=== PATIENT | female | born 1960 | race Caucasian/White ===

== ENCOUNTER 2019-06-27 10:17 | Emergency (ER) | payer SELFPAY, OTHER | END 2019-06-27 15:37 | disposition home or self-care (01) | LOC: JER 10:17 ==

== ENCOUNTER 2019-06-29 14:08 | Emergency (ER) | payer SELFPAY ==
[2019-06-29 14:19] VITALS: BP 129/92; PULSE 97; TEMP 97.7; BMI 23.6
--- NOTE | 2019-06-29 14:41 | PDOC ---
Suture Removal/Wound Check HPI - History of Present Illness Chief Complaint: Revisit,Wound Recheck Stated Complaint: WOUND F/U Time Seen by Provider: 06/29/19 14:31 Date of Last ED visit: 06/27/19 - Previous ED Treatment Type of procedure performed on last visit: Yes: I&D of Abscess Antibiotics Prescribed: Yes - Onset of Previous Treatment Comment:: 06/29/19 14:37 Patient returns to ED for recheck of I&D. Abscess healing well, packing still in place. Reports that she has been taking abx as prescribed and abscess has decreased in size and pain. Erythema to wound site but no significant TTP. Packing removed, wound dressed with dry gauze. Return precautions given. Past History - Past Medical History Allergies/Adverse Reactions: Allergies Allergy/AdvReac Type Severity Reaction Status Date / Time No Known Allergies Allergy Verified 06/29/19 14:09 Home Medications: Ambulatory Orders Clindamycin [Cleocin -] 300 mg PO Q6HPO #28 capsule 06/27/19 L. Rhamnosus GG/Inulin [Culturelle Capsule] 1 each PO DAILY #10 cap.sprink 06/27 Metformin HCl [Glucophage] 500 mg PO BID #120 tablet 06/27/19 COPD: No Diabetes: Yes (NIDM NEUROPATHY) - Immunization History Immunization Up to Date: Yes - Suicide/Smoking/Psychosocial Hx Smoking History: Never smoked Hx Alcohol Use: No Drug/Substance Use Hx: No *Physical Exam - Vital Signs Last Vital Signs Temp Pulse Resp BP Pulse Ox 97.7 F 97 H 18 129/92 96 06/29/19 14:10 06/29/19 14:10 06/29/19 14:10 06/29/19 14:10 06/29/19 14:10 *DC/Admit/Observation/Transfer Diagnosis at time of Disposition: Encounter for wound re-check - Discharge Dispostion Disposition: HOME Condition at time of disposition: Stable Decision to Admit order: No - Referrals - Patient Instructions Printed Discharge Instructions: DI for Incision and Drainage of a Skin Abscess Additional Instructions: Please change your wound dressing after each time you shower. Complete the course of antibiotics as prescribed. If your wound develops redness, streaking , swelling, or pain; or you develop any fever, chills, vomiting, or diarrhea, please return to the ER. - Post Discharge Activity
== END 2019-06-29 14:45 | disposition home or self-care (01) ==
LOC: JERFT 14:08
DX: Z48.00 Encounter for change or removal of nonsurgical wound dressing (principal)
CPT/HCPCS: 99281-25

== ENCOUNTER 2020-05-04 21:36 | Inpatient (IN) | payer OTHER ==
[2020-05-04] MEDS ORDERED: SODIUM CHLORIDE 1,000 ML IV STA (21:42)
--- NOTE | 2020-05-04 21:44 | PDOC ---
Rapid Medical Evaluation Chief Complaint: Nausea/Vomiting Time Seen by Provider: 05/04/20 21:39 Medical Evaluation: Allergies Allergy/AdvReac Type Severity Reaction Status Date / Time No Known Allergies Allergy Verified 06/29/19 14:09 05/04/20 21:39 60 year old female bib daughter c/o NV x 4 days. denies fever / chills. as per daughter patient was altered mental status at home. patient now alert ox3. patient is a noncompliant diabetic. Pe: patient alert ox3. A: nausea, vomiting P: labs IVF Discharge Disposition - Diagnosis Confusion Nausea & vomiting Qualifiers: Vomiting type: unspecified Vomiting Intractability: unspecified Qualified Code(s): R11.2 - Nausea with vomiting, unspecified - Referrals - Patient Instructions - Post Discharge Activity
--- NOTE | 2020-05-04 22:15 | PDOC ---
History of Present Illness - General Chief Complaint: Nausea/Vomiting Stated Complaint: VOMITING Time Seen by Provider: 05/04/20 21:39 - History of Present Illness Initial Comments: The pt is a 60F w/ a history of NIDDM w/o meds for several months who presents for evaluation of nausea and NBNB for 3 days. The pt reports generalized weakness and vomiting. She states she has not taken her metformin in months because she ran out of her meds and does not have insurance. She endorses polyuria/polydipsia She denies fevers/chills, vision changes, SOB, diarrhea, dysuria, hemauria, or changes in sensation 05/04/20 22:12 Past History - Medical History Allergies/Adverse Reactions: Allergies Allergy/AdvReac Type Severity Reaction Status Date / Time No Known Allergies Allergy Verified 05/04/20 21:41 Home Medications: Ambulatory Orders Clindamycin [Cleocin -] 300 mg PO Q6HPO #28 capsule 06/27/19 L. Rhamnosus GG/Inulin [Culturelle Capsule] 1 each PO DAILY #10 cap.sprink 06/27/19 Metformin HCl [Glucophage] 500 mg PO BID #120 tablet 06/27/19 COPD: No Diabetes: Yes (NIDM NEUROPATHY) - Immunization History Immunization Up to Date: Yes - Psycho-Social/Smoking History Smoking History: Never smoked Review of Systems - Review of Systems Able to Perform ROS?: Yes Comments:: GENERAL/CONSTITUTIONAL: +Generalized weakness; No fever or chills HEAD, EYES, EARS, NOSE AND THROAT: No change in vision. No change in hearing. No sore throat CARDIOVASCULAR: No chest pain or shortness of breath RESPIRATORY: Denies cough, hemoptysis GASTROINTESTINAL: +N/V; denies diarrhea GENITOURINARY: No dysuria, frequency, or change in urination MUSCULOSKELETAL: No joint or muscle swelling or pain. No neck or back pain SKIN: No rash NEUROLOGIC: No headache, vertigo, loss of consciousness, or change in strength/sensation ENDOCRINE: +polyuria/polydipsia HEMATOLOGIC/LYMPHATIC: No anemia, easy bleeding, or history of blood clots ALLERGIC/IMMUNOLOGIC: No hives or skin allergy 05/04/20 22:12 Is the patient limited Citizen Of The [place] proficient: No *Physical Exam - Vital Signs Last Vital Signs Temp Pulse Resp BP Pulse Ox 98.1 F 60 18 110/54 L 98 05/04/20 21:39 05/04/20 21:39 05/04/20 21:39 05/04/20 21:39 05/04/20 21:39 - Physical Exam GENERAL: Awake, alert, and oriented to person/place/time, in no acute distress HEAD: No signs of trauma, normocephalic, atraumatic EYES: PERRLA, EOMI, sclera anicteric, conjunctiva clear ENT: Hearing grossly normal, nares patent, oropharynx clear without exudates. Moist mucosa LUNGS: No distress, speaks in full sentences, clear to auscultation bilaterally HEART: Regular rate and rhythm, normal S1 and S2, no murmurs appreciated, peripheral pulses normal and equal bilaterally ABDOMEN: Soft, nontender, normoactive bowel sounds. No guarding, no rebound EXTREMITIES: Normal inspection, Normal range of motion, no edema. No clubbing or cyanosis NEUROLOGICAL: Cranial nerves II through XII grossly intact. Normal speech, no focal sensorimotor deficits SKIN: Warm, Dry 05/04/20 22:14 ED Treatment Course - LABORATORY CBC & Chemistry Diagram: 05/04/20 20:09 05/04/20 23:30 Medical Decision Making - Medical Decision Making The pt is a 60F w/ a history of NIDDM w/o meds for several months who presents for evaluation of nausea and NBNB for 3 days. Pt reports not taking her medications for the last several months. Partially because she can't afford them but states she unable to take pills unless crushed No emesis in ED 05/05/20 03:08 Hyperglycemia noted -Pt receiving IVF (3L total) No anemia No leukocytosis Lytes overall unremarkable Cr noted, receiving IVF Trop I neg UA w/o evidence of UTI Repeat BGM improving Pt states she is unable to stay. She states she has Metformin at home and will start taking it. 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 Will AMA, risks explained, return precautions given and emphasis for PCP f/u made 05/05/20 03:38 Pt initially stated she wanted to AMA Upon daughter's arrival, she states pt does not actually have any medications at home nor a clinic that she follows at and is willing to stay to have her BG controlled and therapy re-initiated 05/05/20 06:49 Will repeat CMP to determine if AG is persistent -Case discussed with Dorina Admitting -ICU consulted and will see patient -CMP pending 05/05/20 06:55 Discharge - Discharge Information Problems reviewed: Yes Clinical Impression/Diagnosis: Hyperglycemia Nausea & vomiting Qualifiers: Vomiting type: unspecified Vomiting Intractability: unspecified Qualified Code(s): R11.2 - Nausea with vomiting, unspecified Condition: Stable - Follow up/Referral Referrals: [facility] [place] [facility] [place] [Provider Group] Radha Adkins MD [Staff Physician] - Aria Rincon MD [Staff Physician] - Lakia Villalta MD [Staff Physician] - - Patient Discharge Instructions Patient Printed Discharge Instructions: DI for Diabetes Type 2, DI for Hyperglycemia -- Adult Additional Instructions: You were seen in the Emergency Department for evaluation of high blood sugar. Your other labs are overall unremarkable. You should continue to take your medications as prescribed. It can be dangerous if you blood sugars are too high or too low. Follow up with your clinic as discussed this week. If you are unable to take your Metformin you may have to be transitioned to another medication. Be sure to discuss this with your doctor when you see them in clinic. Return to the Emergency Department if you develop confusion, passing out, fevers, chest pain, trouble breathing, worsening symptoms, or any new/concerning symptoms. - Post Discharge Activity
--- NOTE | 2020-05-04 22:23 | PDOC ---
Documentation entered by Lesly Gonzalez SCRIBE, acting as scribe for Carlotta Odom MD. Carlotta Odom MD: This documentation has been prepared by the Lisa gupta Brenda, SCRIBE, under my direction and personally reviewed by me in its entirety. I confirm that the documentation accurately reflects all work, treatment, procedures, and medical decision making performed by me. Attending Attestation - Resident Resident Name: Chivo Souza - ED Attending Attestation I have performed the following: I have examined & evaluated the patient, The case was reviewed & discussed with the resident, I agree w/resident's findings & plan, Exceptions are as noted - HPI HPI: 05/04/20 22:13 The patient is a 60 year old female with a significant PMH of NIDDM (noncompliant with metformin for months due to running out) who presents to the ED by daughter for evaluation of 4 days of nausea and NBNB vomiting accompanied by generalized weakness. Patient endorses having throat pain prior to start of vomitting along with polyuria and polydispea. She also endorses feeling slightly confused earlier today, which daughter also confirmed, but patient notes feeling normal now. The patient denies chest pain, shortness of breath, headache and dizziness. Denies fever, chills, diarrhea and constipation. Allergies: NKA - Physicial Exam PE: 05/04/20 22:20 wnwd 60 yo female p/w 3 days of fatigue,multi episodes of vomiting, polyuria,polydyspsia head ncat neck supple lungs cta b/l cvs [id number] abdomen no rebound skin warm and dry extremities no deformities neuro axox3 - Medical Decision Making 05/04/20 22:57 pH=7.37 05/04/20 23:27 Daughter Sara [phone] The daughter states that her mother refuses to take any of her diabetes medicine and rarely sees a physician 05/05/20 02:19 pt is alert and conversant,stable VS pt has not been complaint with meds and has had increased urination anion gap=15 glucose 800 pt receiving IVF Discharge - Discharge Information Problems reviewed: Yes Clinical Impression/Diagnosis: Hyperglycemia Nausea & vomiting Qualifiers: Vomiting type: unspecified Vomiting Intractability: unspecified Qualified Code(s): R11.2 - Nausea with vomiting, unspecified Condition: Stable Disposition: HOME - Follow up/Referral - Patient Discharge Instructions - Post Discharge Activity
[2020-05-04] MEDS ORDERED: ONDANSETRON 4 MG/2 ML VIAL IVPUSH ONE (22:26)
[2020-05-04 22:40] LABS: BASO % 0.5 % (0-2.0); HEMATOCRIT 44.5 % (32.4-45.2); HEMOGLOBIN 14.1 GM/dL (10.7-15.3); LYMPH % 9.9 % (8-40); MCH 28.1 pg (25.7-33.7); MCHC 31.7 g/dl (32.0-36.0); MEAN CELL VOLUME 88.7 fl (80-96); MEAN PLT VOLUME 9.1 fl (7.5-11.1); MONO % 10.4 % (3.8-10.2); NEUT % 79.2 % (42.8-82.8); PLATELET COUNT 279 K/MM3 (134-434); RBC 5.02 M/mm3 (3.60-5.2); RDW 14.2 % (11.6-15.6); VENOUS BASE EXCESS -3.4 mmol/L (-2-2); VENOUS PCO2 37.2 mmHg (38-52); VENOUS PH 7.375 (7.310-7.410); WHITE BLOOD COUNT 11.8 K/mm3 (4.0-10.0)
[2020-05-04 23:11] LABS: ALBUMIN 3.2 g/dl (3.4-5.0); ALK PHOS 129 U/L (45-117); BILIRUBIN,TOTAL 0.9 mg/dL (0.2-1); BLOOD UREA NITROGEN 37.6 mg/dL (7-18); CALCIUM 9.2 mg/dL (8.5-10.1); CHLORIDE 93 mmol/L (98-107); CO2 20 mmol/L (21-32); CREATININE 1.8 mg/dL (0.55-1.3); SGOT/AST 70 U/L (15-37); SODIUM 125 mmol/L (136-145); TOT PROT 7.5 g/dl (6.4-8.2)
[2020-05-04 23:21] LABS: SGPT/ALT 23 U/L (13-61)
[2020-05-04 23:22] LABS: ANION GAP 12 MMOL/L (8-16)
[2020-05-05 00:02] LABS: URINE APPEARANCE CLEAR; URINE BILIRUBIN NEGATIVE (NEGATIVE); URINE COLOR YELLOW; URINE GLUCOSE (UA) 3+ (NEGATIVE); URINE KETONE 1+ (NEGATIVE); URINE LEUK ESTERASE NEGATIVE (NEGATIVE); URINE NITRITE NEGATIVE (NEGATIVE); URINE PROTEIN NEGATIVE (NEGATIVE); URINE UROBILINOGEN 0.2 mg/dL (0.2-1.0)
[2020-05-05 00:39] LABS: CALCIUM 8.9 mg/dL (8.5-10.1); CREATININE 1.4 mg/dL (0.55-1.3); POTASSIUM 4.4 mmol/L (3.5-5.1)
[2020-05-05] MEDS ORDERED: metFORMIN HCL 500 MG TABLET (FP) PO ONE (00:42)
[2020-05-05] MEDS ORDERED: INSULIN REGULAR HUMAN 100 UNITS/ML *VIAL SQ ONE ×2 (00:43→08:50)
[2020-05-05] MEDS ORDERED: SODIUM CHLORIDE 0.9% 500 ML INFUS.BAG IV ONE ×3 (00:44→03:27)
[2020-05-05] MEDS ORDERED: metFORMIN HCL 500 MG TABLET (FP) ONE (01:09)
--- NOTE | 2020-05-05 08:25 | CONSULT ---
Consultation: REQUESTING PROVIDER:ER CONSULT REQUEST: We have been asked to medically evaluate this patient for (DKA ).anion gap glosed with IV fluids and Insulin SQ no need for ICU level of care HISTORY OF PRESENT ILLNESS: The pt is a 60F w/ a history of NIDDM w/o meds for several months who presents for evaluation of nausea and NBNB for 3 days. The pt reports generalized weakness and vomiting. She states she has not taken her metformin in months because she ran out of her meds and does not have insurance. She endorses polyuria/polydipsia She denies fevers/chills, vision changes, SOB, diarrhea, dysuria, hemauria, or changes in sensation REVIEW OF SYSTEMS:polyuria poly dipsia, sore throat CONSTITUTIONAL: Absent: fever, chills, diaphoresis, generalized weakness, malaise, loss of appetite, weight change HEENT: Absent: rhinorrhea, nasal congestion, throat pain, throat swelling, difficulty swallowing, mouth swelling, ear pain, eye pain, visual changes CARDIOVASCULAR: Absent: chest pain, syncope, palpitations, irregular heart rate, lighth eadedness, peripheral edema RESPIRATORY: Absent: cough, shortness of breath, dyspnea with exertion, orthopnea, wheezing, stridor, hemoptysis GASTROINTESTINAL: Absent: abdominal pain, abdominal distension, nausea, vomiting, diarrhea, constipation, melena, hematochezia GENITOURINARY: Absent: dysuria, frequency, urgency, hesitancy, hematuria, flank pain, genital pain MUSCULOSKELETAL: Absent: myalgia, arthralgia, joint swelling, back pain, neck pain SKIN: Absent: rash, itching, pallor HEMATOLOGIC/IMMUNOLOGIC: Absent: easy bleeding, easy bruising, lymphadenopathy, frequent infections ENDOCRINE: Absent: unexplained weight gain, unexplained weight loss, heat intolerance, cold intolerance NEUROLOGIC: Absent: headache, focal weakness or paresthesias, dizziness, unsteady gait, seizure, mental status changes, bladder or bowel incontinence PSYCHIATRIC: Absent: anxiety, depression, suicidal or homicidal ideation, hallucinations. PHYSICAL EXAMINATION Vital Signs - 24 hr 05/04/20 05/05/20 05/05/20 21:39 04:25 08:07 Temperature 98.1 F 98.7 F 98.4 F Pulse Rate 60 Pulse Rate [ 76 Left Radial] Pulse Rate [ 93 H Left] Respiratory 18 15 16 Rate Blood Pressure 110/54 L Blood Pressure 140/81 156/79 [Right Arm] O2 Sat by Pulse 98 97 99 Oximetry (%) GENERAL: Awake, alert, and fully oriented, in no acute distress. HEAD: Normal with no signs of trauma. EYES: Pupils equal, round and reactive to light, extraocular movements intact, LUNGS: Breath sounds equal, clear to auscultation bilaterally. No wheezes, and no crackles. No accessory muscle use. HEART: Regular rate and rhythm, normal S1 and S2 without murmur, rub or gallop. ABDOMEN: Soft, nontender, not distended, normoactive bowel sounds, LOWER EXTREMITIES: 2+ pulses, warm, well-perfused. No calf tenderness. No peripheral edema. NEUROLOGICAL: no focal deficit . Normal speech. PSYCHIATRIC: Cooperative. Good eye contact. Appropriate mood and affect. SKIN: Warm, dry, normal turgor, Laboratory Results - last 24 hr 05/04/20 05/04/20 05/04/20 20:09 20:09 20:09 WBC 11.8 H RBC 5.02 Hgb 14.1 Hct 44.5 MCV 88.7 MCH 28.1 MCHC 31.7 L RDW 14.2 Plt Count 279 MPV 9.1 Absolute Neuts (auto) 9.4 H Neutrophils % 79.2 D Lymphocytes % 9.9 D Monocytes % 10.4 H D Eosinophils % 0.0 D Basophils % 0.5 Nucleated RBC % 0 VBG pH POC VBG pCO2 POC VBG pO2 VBG HCO3 VBG O2 Sat (Birgit) VBG Base Excess Sodium 125 L Potassium TNP Chloride 93 L Carbon Dioxide 20 L Anion Gap 12 BUN 37.6 H Creatinine 1.8 H Est GFR (CKD-EPI)AfAm 35.09 Est GFR (CKD-EPI)NonAf 30.27 POC Glucometer Random Glucose TNP Calcium 9.2 Total Bilirubin 0.9 AST 70 H ALT 23 Alkaline Phosphatase 129 H Creatine Kinase 260 H Creatine Kinase Index TNP CK-MB (CK-2) TNP Troponin I 0.02 Total Protein 7.5 Albumin 3.2 L Lipase 88 Beta-Hydroxybutyrate 45.4 H Urine Color Urine Appearance Urine pH Ur Specific [place] Urine Protein Urine Glucose (UA) Urine Ketones Urine Blood Urine Nitrite Urine Bilirubin Urine Urobilinogen Ur Leukocyte Esterase 05/04/20 05/04/20 05/04/20 20:09 23:30 23:30 WBC RBC Hgb Hct MCV MCH MCHC RDW Plt Count MPV Absolute Neuts (auto) Neutrophils % Lymphocytes % Monocytes % Eosinophils % Basophils % Nucleated RBC % VBG pH 7.375 POC VBG pCO2 37.2 L POC VBG pO2 < 46.9 VBG HCO3 21.3 L VBG O2 Sat (Birgit) No Result Required. VBG Base Excess -3.4 L Sodium 134 L Potassium 4.4 Chloride 98 Carbon Dioxide 21 Anion Gap 15 BUN 35.0 H Creatinine 1.4 H Est GFR (CKD-EPI)AfAm 47.55 Est GFR (CKD-EPI)NonAf 41.02 POC Glucometer Random Glucose 831 H* Calcium 8.9 Total Bilirubin AST ALT Alkaline Phosphatase Creatine Kinase Creatine Kinase Index CK-MB (CK-2) Troponin I Total Protein Albumin Lipase Beta-Hydroxybutyrate Urine Color Yellow Urine Appearance Clear Urine pH 5.0 Ur Specific [place] 1.035 Urine Protein Negative Urine Glucose (UA) 3+ H Urine Ketones 1+ H Urine Blood Negative Urine Nitrite Negative Urine Bilirubin Negative Urine Urobilinogen 0.2 Ur Leukocyte Esterase Negative 05/05/20 05/05/20 03:13 05:21 WBC RBC Hgb Hct MCV MCH MCHC RDW Plt Count MPV Absolute Neuts (auto) Neutrophils % Lymphocytes % Monocytes % Eosinophils % Basophils % Nucleated RBC % VBG pH POC VBG pCO2 POC VBG pO2 VBG HCO3 VBG O2 Sat (Birgit) VBG Base Excess Sodium Potassium Chloride Carbon Dioxide Anion Gap BUN Creatinine Est GFR (CKD-EPI)AfAm Est GFR (CKD-EPI)NonAf POC Glucometer 558 461 Random Glucose Calcium Total Bilirubin AST ALT Alkaline Phosphatase Creatine Kinase Creatine Kinase Index CK-MB (CK-2) Troponin I Total Protein Albumin Lipase Beta-Hydroxybutyrate Urine Color Urine Appearance Urine pH Ur Specific [place] Urine Protein Urine Glucose (UA) Urine Ketones Urine Blood Urine Nitrite Urine Bilirubin Urine Urobilinogen Ur Leukocyte Esterase CBC, BMP 05/04/20 20:09 CBC,CMP WBC 11.8 K/mm3 (4.0-10.0) H 05/04/20 20:09 RBC 5.02 M/mm3 (3.60-5.2) 05/04/20 20:09 Hgb 14.1 GM/dL (10.7-15.3) 05/04/20 20:09 Hct 44.5 % (32.4-45.2) 05/04/20 20:09 MCV 88.7 fl (80-96) 05/04/20 20:09 MCH 28.1 pg (25.7-33.7) 05/04/20 20:09 MCHC 31.7 g/dl (32.0-36.0) L 05/04/20 20:09 RDW 14.2 % (11.6-15.6) 05/04/20 20:09 Plt Count 279 K/MM3 (134-434) 05/04/20 20:09 MPV 9.1 fl (7.5-11.1) 05/04/20 20:09 Absolute Neuts (auto) 9.4 K/mm3 (1.5-8.0) H 05/04/20 20:09 Neutrophils % 79.2 % (42.8-82.8) D 05/04/20 20:09 Lymphocytes % 9.9 % (8-40) D 05/04/20 20:09 Monocytes % 10.4 % (3.8-10.2) H D 05/04/20 20:09 Eosinophils % 0.0 % (0-4.5) D 05/04/20 20:09 Basophils % 0.5 % (0-2.0) 05/04/20 20:09 Nucleated RBC % 0 % (0-0) 05/04/20 20:09 Sodium 134 mmol/L (136-145) L 05/04/20 23:30 Potassium 4.4 mmol/L (3.5-5.1) 05/04/20 23:30 Chloride 98 mmol/L (98-107) 05/04/20 23:30 Carbon Dioxide 21 mmol/L (21-32) 05/04/20 23:30 Anion Gap 15 MMOL/L (8-16) 05/04/20 23:30 BUN 35.0 mg/dL (7-18) H 05/04/20 23:30 Creatinine 1.4 mg/dL (0.55-1.3) H 05/04/20 23:30 Est GFR (CKD-EPI)AfAm 47.55 05/04/20 23:30 Est GFR (CKD-EPI)NonAf 41.02 06/23/20 23:30 POC Glucometer 461 UNITS (80-120) 05/05/20 05:21 Random Glucose 831 mg/dL (74-106) H* 05/04/20 23:30 Calcium 8.9 mg/dL (8.5-10.1) 05/04/20 23:30 Total Bilirubin 0.9 mg/dL (0.2-1) 05/04/20 20:09 AST 70 U/L (15-37) H 05/04/20 20:09 ALT 23 U/L (13-61) 05/04/20 20:09 Alkaline Phosphatase 129 U/L (45-117) H 05/04/20 20:09 Creatine Kinase 260 U/L (26-192) H 05/04/20 20:09 Creatine Kinase Index TNP 05/04/20 20:09 CK-MB (CK-2) TNP 05/04/20 20:09 Troponin I 0.02 ng/ml (0.00-0.05) 05/04/20 20:09 Total Protein 7.5 g/dl (6.4-8.2) 05/04/20 20:09 Albumin 3.2 g/dl (3.4-5.0) L 05/04/20 20:09 Lipase 88 U/L (73-393) 05/04/20 20:09 Beta-Hydroxybutyrate 45.4 mg/dL (0.2-2.8) H 05/04/20 20:09 ASSESSMENT/PLAN: 60 year old female with history of DM2 on metformin did not take medicane for long time presented with sore throat and polyuria admitted for uncontrolled DM #uncontrolled DM2 #R.O DKA /HHS # FITZ * non compliant with her medicine , * Anion gap closed after IV fluids * can be treated with Insulin SQ at tele floor , * no need for ICU level of care please call hospitalist team * pt denies any fever , chills, N/V/D/C , she report polyuria and polydipsia ' * Monitor K and electrolytes * BGM Q 4hr * BMP Q 4 hr * UA negative # psuedo Hyponatremia 124 after hydration 134 no need for further correction in first 24 hours , Dispo: We will continue to follow the patient. Thank you for this consultative opportunity. Visit type - Emergency Visit Emergency Visit: Yes ED Registration Date: 05/05/20 Care time: The patient presented to the Emergency Department on the above date a nd was hospitalized for further evaluation of their emergent condition. - New Patient This patient is new to me today: Yes Date on this admission: 05/05/20 - Critical Care Critical Care patient: No Total Critical Care Time (in minutes): 45 Critical Care Statement: The care of this patient involved high complexity decision making to prevent further life threatening deterioration of the patient's condition and/or to evaluate & treat vital organ system(s) failure or risk of failure. ATTENDING PHYSICIAN STATEMENT I saw and evaluated the patient. I reviewed the resident's note and discussed the case with the resident. I agree with the resident's findings and plan as documented. SUBJECTIVE: OBJECTIVE: ASSESSMENT AND PLAN:
[2020-05-05 08:44] LABS: ALBUMIN 2.8 g/dl (3.4-5.0); BILIRUBIN,TOTAL 0.5 mg/dL (0.2-1); CALCIUM 8.5 mg/dL (8.5-10.1); CREATININE 1.2 mg/dL (0.55-1.3); POTASSIUM 4.8 mmol/L (3.5-5.1); TOT PROT 6.3 g/dl (6.4-8.2)
--- NOTE | 2020-05-05 08:52 | PDOC ---
*Physical Exam - Vital Signs Last Vital Signs Temp Pulse Resp BP Pulse Ox 98.4 F 93 H 16 156/79 99 05/05/20 08:07 05/05/20 08:07 05/05/20 08:07 05/05/20 08:07 05/05/20 08:07 - Physical Exam 05/05/20 08:52 Informed by RN that patient's repeat glucose was noted to be 512. Will administer 10 units of insulin subq. We will continue with normal saline at 120 mL an hour. ED Treatment Course - LABORATORY CBC & Chemistry Diagram: 05/04/20 20:09 05/05/20 08:00 - ADDITIONAL ORDERS Additional order review: Laboratory Results 05/05/20 05/05/20 05/04/20 05:21 03:13 23:30 VBG pH POC VBG pCO2 POC VBG pO2 VBG HCO3 VBG O2 Sat (Birgit) VBG Base Excess Sodium Potassium Chloride Carbon Dioxide Anion Gap BUN Creatinine Est GFR (CKD-EPI)AfAm Est GFR (CKD-EPI)NonAf POC Glucometer [phone] Random Glucose Calcium Total Bilirubin AST ALT Alkaline Phosphatase Creatine Kinase Creatine Kinase Index CK-MB (CK-2) Troponin I Total Protein Albumin Lipase Beta-Hydroxybutyrate Urine Color Yellow Urine Appearance Clear Urine pH 5.0 Ur Specific [place] 1.035 Urine Protein Negative Urine Glucose (UA) 3+ H Urine Ketones 1+ H Urine Blood Negative Urine Nitrite Negative Urine Bilirubin Negative Urine Urobilinogen 0.2 Ur Leukocyte Esterase Negative 05/04/20 05/04/20 05/04/20 23:30 20:09 20:09 VBG pH 7.375 POC VBG pCO2 37.2 L POC VBG pO2 < 46.9 VBG HCO3 21.3 L VBG O2 Sat (Birgit) No Result Required. VBG Base Excess -3.4 L Sodium 134 L 125 L Potassium 4.4 TNP Chloride 98 93 L Carbon Dioxide 21 20 L Anion Gap 15 12 BUN 35.0 H 37.6 H Creatinine 1.4 H 1.8 H Est GFR (CKD-EPI)AfAm 47.55 35.09 Est GFR (CKD-EPI)NonAf 41.02 30.27 POC Glucometer Random Glucose 831 H* TNP Calcium 8.9 9.2 Total Bilirubin 0.9 AST 70 H ALT 23 Alkaline Phosphatase 129 H Creatine Kinase 260 H Creatine Kinase Index TNP CK-MB (CK-2) TNP Troponin I 0.02 Total Protein 7.5 Albumin 3.2 L Lipase Beta-Hydroxybutyrate Urine Color Urine Appearance Urine pH Ur Specific [place] Urine Protein Urine Glucose (UA) Urine Ketones Urine Blood Urine Nitrite Urine Bilirubin Urine Urobilinogen Ur Leukocyte Esterase 05/04/20 20:09 VBG pH POC VBG pCO2 POC VBG pO2 VBG HCO3 VBG O2 Sat (Birgit) VBG Base Excess Sodium Potassium Chloride Carbon Dioxide Anion Gap BUN Creatinine Est GFR (CKD-EPI)AfAm Est GFR (CKD-EPI)NonAf POC Glucometer Random Glucose Calcium Total Bilirubin AST ALT Alkaline Phosphatase Creatine Kinase Creatine Kinase Index CK-MB (CK-2) Troponin I Total Protein Albumin Lipase 88 Beta-Hydroxybutyrate 45.4 H Urine Color Urine Appearance Urine pH Ur Specific [place] Urine Protein Urine Glucose (UA) Urine Ketones Urine Blood Urine Nitrite Urine Bilirubin Urine Urobilinogen Ur Leukocyte Esterase 05/05/20 05/05/20 05/04/20 05:21 03:13 20:09 RBC 5.02 MCV 88.7 MCHC 31.7 L RDW 14.2 MPV 9.1 Neutrophils % 79.2 D Lymphocytes % 9.9 D Monocytes % 10.4 H D Eosinophils % 0.0 D Basophils % 0.5 POC Glucometer 461 558 - Medications Given in the ED: ED Medications Discontinued Medications Generic Name Dose Route Start Last Admin Trade Name Freq PRN Reason Stop Dose Admin Sodium Chloride 1,000 mls @ 1,000 mls/hr 05/04/20 21:42 05/04/20 22:34 Normal Saline - IV 05/04/20 22:41 1,000 mls/hr .Q1H STA Administration Insulin Human Regular 4 units 05/05/20 00:43 05/05/20 01:29 Novolin R Vial *For Ivpush Or Iv Drip Only* SQ 05/05/20 00:44 4 units ONCE ONE Administration Metformin HCl 500 mg 05/05/20 00:42 05/05/20 01:29 Glucophage - PO 05/05/20 00:43 500 mg ONCE ONE Administration Ondansetron HCl 4 mg 05/04/20 22:26 05/04/20 22:34 Zofran Injection IVPUSH 05/04/20 22:27 4 mg ONCE ONE Administration Sodium Chloride 1,000 ml 05/05/20 00:44 05/05/20 01:28 Normal Saline - IV 05/05/20 00:45 1,000 ml ONCE ONE Administration Sodium Chloride 1,000 ml 05/05/20 01:41 05/05/20 04:49 Normal Saline - IV 05/05/20 01:42 Not Given ONCE ONE Sodium Chloride 1,000 ml 05/05/20 03:27 05/05/20 04:20 Normal Saline - IV 05/05/20 03:28 1,000 ml ONCE ONE Administration Discharge - Discharge Information Problems reviewed: Yes Clinical Impression/Diagnosis: Hyperglycemia Nausea & vomiting Qualifiers: Vomiting type: unspecified Vomiting Intractability: unspecified Qualified Code(s): R11.2 - Nausea with vomiting, unspecified Condition: Stable - Follow up/Referral - Patient Discharge Instructions - Post Discharge Activity
[2020-05-05] MEDS ORDERED: INSULIN REGULAR HUMAN 100 UNITS/ML *VIAL ONE ×2 (08:53→22:10)
[2020-05-05] MEDS ORDERED: SODIUM CHLORIDE 1,000 ML IV SCH ×2 (09:00→22:15)
--- NOTE | 2020-05-05 12:28 | PN ---
Teaching Attending Note Name of Resident: Ren Mccartney ATTENDING PHYSICIAN STATEMENT I saw and evaluated the patient. I reviewed the resident's note and discussed the case with the resident. I agree with the resident's findings and plan as documented. SUBJECTIVE: Pt seen and examined in the ED. Blood glucose levels still high but improving. States nausea is improving as well. No fevers/chills. OBJECTIVE: Vital Signs Period Temp Pulse Resp BP Sys/Garcia Pulse Ox Last 24 Hr 98.1 F-98.7 F 60-93 15-18 110-156/54-81 97-99 Gen: NAD at rest HEENT: dry mucous membranes Heart: RRR Lung: decreased breath sounds at the bases Abd: soft, nontender Ext: no edema CBC, BMP 05/04/20 20:09 05/05/20 08:00 Active Medications Sodium Chloride (Normal Saline -) 1,000 mls @ 125 mls/hr IV ASDIR ANTONIO Last Admin: 05/05/20 11:00 Dose: 125 mls/hr Documented by: ASSESSMENT AND PLAN: SUBJECTIVE: Pt seen and examined in the ICU. Remains intubated, sedated on vasopressin gtt. Good urine output. No fevers recorded. OBJECTIVE: Vital Signs Period Temp Pulse Resp BP Sys/Garcia Pulse Ox Last 24 Hr 99 F-101.1 F 80-109 18-25 89-112/55-96 93-98 Intake & Output 05/01/20 05/02/20 05/03/20 05/04/20 23:59 23:59 23:59 23:59 Intake Total 1192 1248 2888 360 Output Total 5400 4600 2450 700 Balance -4208 -3352 438 -340 Weight 165.561 kg 165.561 kg 147.962 kg Gen: intubated, sedated Heart: RRR Lung: decreased breath sounds at the bases Abd: soft, nontender Ext: + edema Abnormal Lab Results 05/04/20 05/04/20 05/04/20 20:09 20:09 20:09 WBC 11.8 H MCHC 31.7 L Absolute Neuts (auto) 9.4 H Monocytes % 10.4 H D POC VBG pCO2 VBG HCO3 VBG Base Excess Sodium 125 L Chloride 93 L Carbon Dioxide 20 L BUN 37.6 H Creatinine 1.8 H Random Glucose AST 70 H Alkaline Phosphatase 129 H Creatine Kinase 260 H Total Protein Albumin 3.2 L Beta-Hydroxybutyrate 45.4 H Urine Glucose (UA) Urine Ketones 05/04/20 05/04/20 05/04/20 20:09 23:30 23:30 WBC MCHC Absolute Neuts (auto) Monocytes % POC VBG pCO2 37.2 L VBG HCO3 21.3 L VBG Base Excess -3.4 L Sodium 134 L Chloride Carbon Dioxide BUN 35.0 H Creatinine 1.4 H Random Glucose 831 H* AST Alkaline Phosphatase Creatine Kinase Total Protein Albumin Beta-Hydroxybutyrate Urine Glucose (UA) 3+ H Urine Ketones 1+ H 05/05/20 08:00 WBC MCHC Absolute Neuts (auto) Monocytes % POC VBG pCO2 VBG HCO3 VBG Base Excess Sodium Chloride Carbon Dioxide 19 L BUN 33.0 H Creatinine Random Glucose 512 H* AST 11 L Alkaline Phosphatase Creatine Kinase Total Protein 6.3 L Albumin 2.8 L Beta-Hydroxybutyrate Urine Glucose (UA) Urine Ketones Active Medications Sodium Chloride (Normal Saline -) 1,000 mls @ 125 mls/hr IV ASDIR ANTONIO Last Admin: 05/05/20 11:00 Dose: 125 mls/hr Documented by: ASSESSMENT AND PLAN: HHS/DKA improving Dehydration Acute Kidney Injury Pseudohyponatremia - glucose control - continue IVF - monitor urine output, creatinine - monitor lytes - PO as tolerated - check HbA1c - needs outpt f/u - DVT prophylaxis - can monitor on floor, please call if any change in clinical status
--- NOTE | 2020-05-05 13:39 | EKG ---
Test Reason : Blood Pressure : / mmHG Vent. Rate : 098 BPM Atrial Rate : 098 BPM P-R Int : 144 ms QRS Dur : 082 ms QT Int : 378 ms P-R-T Axes : 040 -28 018 degrees QTc Int : 482 ms NORMAL SINUS RHYTHM PROLONGED QT ABNORMAL ECG NO PREVIOUS ECGS AVAILABLE Confirmed by MD Brandon, Cam ([id number]) on 05/05/2020 1:39:10 PM Referred By: Confirmed By:Cam Taylor MD
--- NOTE | 2020-05-05 19:51 | PN ---
Teaching Attending Note Name of Resident: Brittny Foreman ATTENDING PHYSICIAN STATEMENT I saw and evaluated the patient. I reviewed the resident's note and discussed the case with the resident. I agree with the resident's findings and plan as documented. SUBJECTIVE: Patient is a 60 year old woman with a PMH of NIDDM (noncompliant with metformin for months due to running out) who was brought to the ER by the daughter for evaluation of 4 days of nausea and vomiting accompanied by generalized weakness. Patient endorses having throat pain prior to start of vomiting along with polyuria and polydispea. She also endorses feeling slightly confused earlier today, which daughter also confirmed, but patient notes feeling normal now. Patient denies chest pain, shortness of breath, headache, dizziness, fever, chills, diarrhea or constipation. Denies alcohol, tobacco or illicit drug use. No sick contacts or recent travels. Family history is unremarkable. OBJECTIVE: Alert Vital Signs Period Temp Pulse Resp BP Sys/Garcia Pulse Ox Last 24 Hr 98.1 F-99.2 F 60-93 15-18 110-156/54-81 97-99 HEENT: No Jaundice, eye redness or discharge, PERRLA, EOMI. Normocephalic, atraumatic. External ears are normal and hearing is grossly intact. No nasal discharge. Neck: Supple, nontender. No palpable adenopathy or thyromegaly. No JVD Chest: Good effort. Clear to auscultation and percussion. Heart: Regular. No S3, rub or murmur Abdomen: Not distended, soft, nontender and no HSM. No rebound or guarding. Normal bowel sounds. Ext: Peripheral pulses intact. No leg edema. Skin: Warm and dry. No petechiae, rash or ecchymosis. Neuro: Alert. Oriented x3. CN 2-12 grossly intact. Sensation grossly intact in all four extremities and DTR are symmetric. Psych: Appropriate mood and affect. Good insight. Current Medications Generic Name Dose Route Start Last Admin Trade Name Freq PRN Reason Stop Dose Admin Sodium Chloride 1,000 mls @ 125 mls/hr 05/05/20 09:00 05/05/20 11:00 Normal Saline - IV 125 mls/hr ASDIR ANTONIO Administration Home Medications Medication Instructions Recorded Metformin HCl [Glucophage] 500 mg PO BID #120 tablet 06/27/19 Abnormal Lab Results 05/04/20 05/04/20 05/04/20 20:09 20:09 20:09 WBC 11.8 H MCHC 31.7 L Absolute Neuts (auto) 9.4 H Monocytes % 10.4 H D POC VBG pCO2 VBG HCO3 VBG Base Excess Sodium 125 L Chloride 93 L Carbon Dioxide 20 L BUN 37.6 H Creatinine 1.8 H Random Glucose AST 70 H Alkaline Phosphatase 129 H Creatine Kinase 260 H Total Protein Albumin 3.2 L Beta-Hydroxybutyrate 45.4 H Urine Glucose (UA) Urine Ketones 05/04/20 05/04/20 05/04/20 20:09 23:30 23:30 WBC MCHC Absolute Neuts (auto) Monocytes % POC VBG pCO2 37.2 L VBG HCO3 21.3 L VBG Base Excess -3.4 L Sodium 134 L Chloride Carbon Dioxide BUN 35.0 H Creatinine 1.4 H Random Glucose 831 H* AST Alkaline Phosphatase Creatine Kinase Total Protein Albumin Beta-Hydroxybutyrate Urine Glucose (UA) 3+ H Urine Ketones 1+ H 05/05/20 08:00 WBC MCHC Absolute Neuts (auto) Monocytes % POC VBG pCO2 VBG HCO3 VBG Base Excess Sodium Chloride Carbon Dioxide 19 L BUN 33.0 H Creatinine Random Glucose 512 H* AST 11 L Alkaline Phosphatase Creatine Kinase Total Protein 6.3 L Albumin 2.8 L Beta-Hydroxybutyrate Urine Glucose (UA) Urine Ketones Current Medications Generic Name Dose Route Start Last Admin Trade Name Freq PRN Reason Stop Dose Admin Heparin Sodium (Porcine) 5,000 unit 05/06/20 02:00 Heparin - SQ Q8H-IV ANTONIO Sodium Chloride 1,000 mls @ 125 mls/hr 05/05/20 09:00 05/05/20 11:00 Normal Saline - IV 125 mls/hr ASDIR ANTONIO Administration Potassium Chloride 10 meq in 100 mls @ 100 mls/hr 05/05/20 22:15 Potassium Chloride 10 Meq Premix Ivpb - IVPB 05/06/20 01:14 Q60M ANTONIO Sodium Chloride 1,000 mls @ 125 mls/hr 05/05/20 22:15 Normal Saline - IV ASDIR ANTONIO Insulin Aspart 1 vial 05/06/20 07:00 Novolog Vial Sliding Scale - SQ ACHS ANTONIO Protocol ASSESSMENT AND PLAN: 1. Diabetic ketoacidosis - Likely precipitated by nonadherence. Leukocytosis is likely due to stress. Will get a CXR stat. ER staff prescribed Zofran, Insulin SQ, Metformin and IV NS for the patient. Will repeat BMP stat and then decide whether to give insulin IV or SQ, continue IV NS, give IV KCL and q 4 hour BMP and manage in accordance with DKA protocol. Monitor and replete electrolytes (Ca,Mg,K,P). EKG shows NSR at 98/minute and QTc [address]-T wave changes. Will avoid all drugs that may prolong QTc. Hyponatremia likely partly due to hyperglycemia. Will limit free water intake and correct hyperglycemia. Provide comprehensive diabetes care with patient teaching and counseling about the importance of adherence to prescribed diabetes regimen, euglycemia, eye care and foot care. Viral testing for COVID-19 ordered and patient placed on airborne, droplet and contact isolation. Will continue comprehensive care for all of patients comorbid conditions. 2. Hypoalbuminemia - Possibly due to combined effects of malnutrition and inflammation associated with comorbid conditions. Will ensure adequate dietary protein intake and also consult supervisor lump room. 3. FITZ Likely partly due to rhabdomyolysis and dehydration from osmotic diuresis. Will check urine protein/creatinine ratio and treat wih ACEI or ARB. Will get kidney sonogramy, monitor urine output and consult Nephrology. Avoid nephrotoxic agents such as NSAIDS, aminoglycosides, contrast dyes and certain Alternative medicine products. 4. DVT prophylaxis - Heparin 5000u sq tid. 5. Advance directives - Full code
[2020-05-05 20:56] LABS: ALBUMIN 2.7 g/dl (3.4-5.0); BILIRUBIN,TOTAL 0.6 mg/dL (0.2-1); CALCIUM 8.6 mg/dL (8.5-10.1); POTASSIUM 4.1 mmol/L (3.5-5.1); TOT PROT 5.9 g/dl (6.4-8.2)
[2020-05-05] MEDS ORDERED: INSULIN REGULAR HUMAN 100 UNITS/ML *VIAL IVPUSH ONE (21:48)
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
[2020-05-05] MEDS ORDERED: ONDANSETRON 8 MG TABLET (FP) PO ONE (22:42)
[2020-05-05] MEDS ORDERED: KCL 10 MEQ IVPB 10 MEQ/100 ML INFUS.BAG IVPB ONE (22:59)
[2020-05-05] MEDS: HEPARIN NA (PORCINE) 5,000 UNITS/ML 1ML VIAL SQ SCH (23:08)
[2020-05-05] MEDS: KCL 10 MEQ IVPB 10 MEQ/100 ML INFUS.BAG IVPB SCH ×2 (23:08→23:57)
[2020-05-06 00:24] LABS: BASO % 0.4 % (0-2.0); EOS % 0.4 % (0-4.5); HEMOGLOBIN 11.6 GM/dL (10.7-15.3); LYMPH % 17.1 % (8-40); MCH 28.5 pg (25.7-33.7); MCHC 33.3 g/dl (32.0-36.0); MEAN CELL VOLUME 85.6 fl (80-96); MEAN PLT VOLUME 8.1 fl (7.5-11.1); MONO % 10.2 % (3.8-10.2); NEUT % 71.9 % (42.8-82.8); PLATELET COUNT 217 K/MM3 (134-434); RBC 4.09 M/mm3 (3.60-5.2); RDW 13.7 % (11.6-15.6)
[2020-05-06] MEDS ORDERED: KCL 10 MEQ IVPB 10 MEQ/100 ML INFUS.BAG IVPB ONE (00:55)
[2020-05-06 01:11] LABS: ALBUMIN 2.6 g/dl (3.4-5.0); BILIRUBIN,TOTAL 0.6 mg/dL (0.2-1); CALCIUM 8.4 mg/dL (8.5-10.1); MAGNESIUM 2.4 mg/dL (1.8-2.4); PHOSPHOROUS 2.2 mg/dL (2.5-4.9); TOT PROT 5.5 g/dl (6.4-8.2)
[2020-05-06] MEDS: KCL 10 MEQ IVPB 10 MEQ/100 ML INFUS.BAG IVPB SCH (01:32)
[2020-05-06 04:01] VITALS: BMI 25.2
[2020-05-06] MEDS: HEPARIN NA (PORCINE) 5,000 UNITS/ML 1ML VIAL SQ SCH ×3 (07:23→21:48)
[2020-05-06] MEDS: INSULIN SLIDING SCALE (NOVOLOG) 1 VIAL SQ SCH ×4 (07:23→21:47)
[2020-05-06 08:11] LABS: BASO % 0.1 % (0-2.0); EOS % 0.1 % (0-4.5); HEMATOCRIT 36.8 % (32.4-45.2); LYMPH % 17.8 % (8-40); MCH 28.3 pg (25.7-33.7); MCHC 32.6 g/dl (32.0-36.0); MEAN PLT VOLUME 8.2 fl (7.5-11.1); MONO % 7.7 % (3.8-10.2); NEUT % 74.3 % (42.8-82.8); PLATELET COUNT 203 K/MM3 (134-434); RBC 4.23 M/mm3 (3.60-5.2); RDW 13.7 % (11.6-15.6)
[2020-05-06 08:44] LABS: ALBUMIN 2.6 g/dl (3.4-5.0); BILIRUBIN,TOTAL 0.9 mg/dL (0.2-1); BLOOD UREA NITROGEN 23.5 mg/dL (7-18); CALCIUM 8.5 mg/dL (8.5-10.1); CREATININE 0.9 mg/dL (0.55-1.3); POTASSIUM 4.6 mmol/L (3.5-5.1); TOT PROT 5.6 g/dl (6.4-8.2)
[2020-05-06] MEDS ORDERED: METOPROLOL TARTRATE 50 MG TABLET (FP) PO ONE (09:32)
--- NOTE | 2020-05-06 10:24 | PN ---
Teaching Attending Note Name of Resident: Augie Guzman ATTENDING PHYSICIAN STATEMENT I saw and evaluated the patient. I reviewed the resident's note and discussed the case with the resident. I agree with the resident's findings and plan as documented. SUBJECTIVE:She is comfortable has no fever no chills she is hungry OBJECTIVE: Vital Signs Period Temp Pulse Resp BP Sys/Garcia Pulse Ox Last 24 Hr 98.1 F-99.2 F 85-94 18-20 130-183/68-99 95-98 Patient is comfortable HEENT normal Neck supple no JVD Lungs clear no wheezing Abdomen nontender no organomegaly bowel sounds normal Extremities no edema no cyanosis normal pulses Neurologically he is alert awake oriented, nonfocal Skin no rash noted her ultrasound of the abdomen showed that she has a renal mass and also gallstones with dilated bile duct ASSESSMENT AND PLAN: 60 y/o F PMHx NIDDM with neuropathy presents with AMS + Nausea/Vomiting. High blood sugar with diabetic ketosis She is much improved now she is hungry will start feeding her lower the amount of fluid to 80 cc an hour continue BGM before meals and at bedtime Added glimepiride and metformin. #Leukocytosis -likely stress reaction -Check CXR #FITZ Improving #FEN -NS 83/per -Replete Lytes PRN Diabetic diet #PPx -DVT: SQH Dispo: Admit to med/surg
[2020-05-06] MEDS: SODIUM CHLORIDE 1,000 ML IV SCH (10:35)
--- NOTE | 2020-05-06 11:05 | PN ---
Physical Exam: SUBJECTIVE: Patient seen and examined at bedside. Feels well at this time. States she learned her lesson and will make sure to watch her blood sugars going forward. OBJECTIVE: Vital Signs Period Temp Pulse Resp BP Sys/Garcia Pulse Ox Last 24 Hr 98.1 F-99.2 F 85-94 18-20 130-183/68-99 95-98 Gen: AAOx3, NAD HEENT: edentulous, moist membranes Neck: supple, no jvd Cardio: rrr, normal s1s2, 3/6 systolic murmur heard throughout precordium Pulm: cta b/l Abd: soft, nontender, nondistended Ext: no edema Skin: numerous tattoos Laboratory Results - last 24 hr 05/05/20 05/05/20 05/05/20 10:59 16:31 19:31 WBC RBC Hgb Hct MCV MCH MCHC RDW Plt Count MPV Absolute Neuts (auto) Neutrophils % Lymphocytes % Monocytes % Eosinophils % Basophils % Nucleated RBC % Sodium Potassium Chloride Carbon Dioxide Anion Gap BUN Creatinine Est GFR (CKD-EPI)AfAm Est GFR (CKD-EPI)NonAf POC Glucometer 417 288 268 Random Glucose Calcium Phosphorus Magnesium Total Bilirubin AST ALT Alkaline Phosphatase Total Protein Albumin U Random Total Protein Urine Creatinine Protein/Creatinin Ratio 05/05/20 05/05/20 05/06/20 20:05 22:13 00:10 WBC 10.0 RBC 4.09 Hgb 11.6 Hct 35.0 D MCV 85.6 MCH 28.5 MCHC 33.3 RDW 13.7 Plt Count 217 D MPV 8.1 D Absolute Neuts (auto) 7.2 Neutrophils % 71.9 Lymphocytes % 17.1 D Monocytes % 10.2 Eosinophils % 0.4 D Basophils % 0.4 Nucleated RBC % 0 Sodium 141 Potassium 4.1 Chloride 109 H Carbon Dioxide 19 L Anion Gap 13 BUN 27.0 H Creatinine 1.0 Est GFR (CKD-EPI)AfAm 71.41 Est GFR (CKD-EPI)NonAf 61.62 POC Glucometer 291 Random Glucose 288 H Calcium 8.6 Phosphorus Magnesium Total Bilirubin 0.6 AST 10 L ALT 16 Alkaline Phosphatase 89 Total Protein 5.9 L Albumin 2.7 L U Random Total Protein Urine Creatinine Protein/Creatinin Ratio 05/06/20 05/06/20 05/06/20 00:10 02:30 02:48 WBC RBC Hgb Hct MCV MCH MCHC RDW Plt Count MPV Absolute Neuts (auto) Neutrophils % Lymphocytes % Monocytes % Eosinophils % Basophils % Nucleated RBC % Sodium 140 Potassium 4.0 Chloride 107 Carbon Dioxide 21 Anion Gap 11 BUN 29.0 H Creatinine 1.0 Est GFR (CKD-EPI)AfAm 71.41 Est GFR (CKD-EPI)NonAf 61.62 POC Glucometer 281 Random Glucose 266 H Calcium 8.4 L Phosphorus 2.2 L Magnesium 2.4 Total Bilirubin 0.6 AST 10 L ALT 13 Alkaline Phosphatase 81 Total Protein 5.5 L Albumin 2.6 L U Random Total Protein 24.0 H Urine Creatinine 41.0 Protein/Creatinin Ratio 0.6 05/06/20 05/06/20 05/06/20 06:02 07:40 07:40 WBC 10.0 RBC 4.23 Hgb 12.0 Hct 36.8 MCV 87.0 MCH 28.3 MCHC 32.6 RDW 13.7 Plt Count 203 MPV 8.2 Absolute Neuts (auto) 7.4 Neutrophils % 74.3 Lymphocytes % 17.8 Monocytes % 7.7 Eosinophils % 0.1 Basophils % 0.1 Nucleated RBC % 0 Sodium 141 Potassium 4.6 Chloride 109 H Carbon Dioxide 14 L Anion Gap 17 H BUN 23.5 H Creatinine 0.9 Est GFR (CKD-EPI)AfAm 81.11 Est GFR (CKD-EPI)NonAf 69.99 POC Glucometer 272 Random Glucose 292 H Calcium 8.5 Phosphorus Magnesium Total Bilirubin 0.9 AST 11 L ALT 15 Alkaline Phosphatase 83 Total Protein 5.6 L Albumin 2.6 L U Random Total Protein Urine Creatinine Protein/Creatinin Ratio Active Medications Generic Name Dose Route Start Last Admin Trade Name Freq PRN Reason Stop Dose Admin Glimepiride 4 mg 05/07/20 07:00 Amaryl - PO DAILY@0700 ANTONIO Heparin Sodium (Porcine) 5,000 unit 05/05/20 23:00 05/06/20 07:23 Heparin - SQ 5,000 unit TID ANTONIO Administration Sodium Chloride 1,000 mls @ 83 mls/hr 05/06/20 09:20 05/06/20 10:35 Normal Saline - IV 83 mls/hr ASDIR ANTONIO Administration Insulin Aspart 1 vial 05/06/20 07:00 05/06/20 07:23 Novolog Vial Sliding Scale - SQ 6 units ACHS [facility] Administration Protocol Metformin HCl 500 mg 05/07/20 07:00 Glucophage - PO DAILY@0700 [facility] ASSESSMENT/PLAN: 60 y/o F PMHx NIDDM with neuropathy presents with AMS + Nausea/Vomiting. DKA vs HHS -on review of labs, minimal to no anion gap present -Ketones present. ? contribution of poor nutrition/starvation after several days of nausea/vomiting -On ISS w/ BGM -Levemir -Starting Glipizide HTN -Lopressor Renal Mass -noted on renal U/S -f/u MRI Gall bladder distension -noted on renal U/S -f/u HIDA -surg consulted. F/u recs PPx -DVT: [facility] Visit type - Emergency Visit Emergency Visit: No - New Patient This patient is new to me today: Yes Date on this admission: 05/06/20 - Critical Care Critical Care patient: No ATTENDING PHYSICIAN STATEMENT I saw and evaluated the patient. I reviewed the resident's note and discussed the case with the resident. I agree with the resident's findings and plan as documented. SUBJECTIVE: OBJECTIVE: ASSESSMENT AND PLAN:
[2020-05-06] MEDS ORDERED: INSULIN (LEVEMIR) 100 UNITS/ML UNITS SQ ONE (11:30)
--- NOTE | 2020-05-06 12:26 | PN ---
Progress Note (short form) - Note Progress Note: surgery asked to evaluate dilated cbd found incidentally on renal u/s in patient admitted for dka. cbd eval is done by gi service. can consider elective cholecystectomy for stones once cbd w/u done and dm under control if symptomatic cholelithiasis suspected.
--- NOTE | 2020-05-06 15:01 | CON.GI ---
Consult Consult Specialty:: GI Referred by:: Hospitalist Service Reason for Consultation:: Dilated common bile duct - History of Present Illness Chief Complaint: Nausea, vomiting with blood glucose >800 History of Present Illness: 60F admitted for evaluation of N/V and blood glucose >800 and altered mental status. Currently asymptomatic. has never had a colonoscopy or upper endoscopy6 Incidentally noted to have renal mass, gallstones and CBD of 1cm. Liver chemistries normal. ALP and ALT mildly elevated on admission. No history of biliary colic given. Cannot have MRI/MRCP to evaluate renal mass or CBD further due to the fact that she has a metal plate in her head. 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) Endocrine: Yes: Diabetes Mellitus (DM II) - Alcohol/Substance Use Hx Alcohol Use: No - Smoking History Smoking history: Never smoked Home Medications - Allergies Allergies/Adverse Reactions: Allergies Allergy/AdvReac Type Severity Reaction Status Date / Time No Known Allergies Allergy Verified 05/06/20 09:35 - Home Medications Home Medications: Ambulatory Orders Metformin HCl [Glucophage] 500 mg PO BID #120 tablet 06/27/19 Family Medical History Other Family History: No family history of colorectal cancer Review of Systems - Review of Systems Constitutional: denies: Chills Cardiovascular: denies: Chest Pain Respiratory: denies: Cough, SOB Gastrointestinal: reports: Nausea, Vomiting. denies: Abdominal Pain, Diarrhea Physical Exam-GI Vital Signs: Vital Signs Temperature 98.4 F 05/06/20 14:00 Pulse Rate 88 05/06/20 14:00 Respiratory Rate 18 05/06/20 14:00 Blood Pressure 136/71 05/06/20 14:00 O2 Sat by Pulse Oximetry (%) 95 05/06/20 09:00 Constitutional: Yes: Calm Eyes: No: Sclera Icterus Cardiovascular: Yes: Regular Rate and Rhythm. No: Murmur Respiratory: Yes: CTA Bilaterally Gastrointestinal Inspection: No: Distention ...Auscultate: Yes: Normoactive Bowel Sounds ...Palpate: Yes: Soft. No: Hepatomegaly, Splenomegaly, Tenderness ...Percussion: No: Tympanitic Neurological: Yes: Alert Labs: CBC, BMP 05/06/20 07:40 05/06/20 07:40 Hepatic Panel Total Bilirubin 0.9 mg/dL (0.2-1) 05/06/20 07:40 AST 11 U/L (15-37) L 05/06/20 07:40 ALT 15 U/L (13-61) 05/06/20 07:40 Alkaline Phosphatase 83 U/L (45-117) 05/06/20 07:40 Albumin 2.6 g/dl (3.4-5.0) L 05/06/20 07:40 Problem List - Problems (1) Common bile duct dilatation Assessment/Plan: Incidental finding of dilated common bile duct. Cannot have MRCP due to metal plate in her head. Liver chemistries are normal, not suggestive of biliary obstruction. Advise: referral for EUS evaluation of CBD and ampulla as outpatient once glycemic control stabilized (ex: Advanced Biliary Endoscopist Dr. Karthikeyan Catherine at [facility]. [phone]) This is the less invasive procedure when compared to an ERCP short of an MRCP. D/W Dr. Adeel Urbina, biliary endoscopist, who was in agreement with that plan. Discussed plan with patient and her daughter. Further evaluation of renal mass per primary team. If liver chemistries trending up in an obstructive pattern (elevated ALP/Bilirubin), RUQ pain develops, clinical concerns of cholangitis, start broad spectrum Abx ( ie Zosyn for biliary coverage) and ERCP would then be considered, otherwise plan as above. Please recall as needed Code(s): K83.8 - OTHER SPECIFIED DISEASES OF BILIARY TRACT (2) Screening for colorectal cancer Assessment/Plan: As outpatient and when patient medically cleared, colonoscopy could be considere d for colorectal cancer screening purposes Code(s): Z12.11 - ENCOUNTER FOR SCREENING FOR MALIGNANT NEOPLASM OF COLON; Z12.12 - ENCOUNTER FOR SCREENING FOR MALIGNANT NEOPLASM OF RECTUM
[2020-05-07] MEDS: SODIUM CHLORIDE 1,000 ML IV SCH ×3 (03:03→21:56)
[2020-05-07] MEDS: INSULIN SLIDING SCALE (NOVOLOG) 1 VIAL SQ SCH ×4 (06:38→21:54)
[2020-05-07] MEDS: HEPARIN NA (PORCINE) 5,000 UNITS/ML 1ML VIAL SQ SCH ×3 (06:39→21:55)
[2020-05-07] MEDS: metFORMIN HCL 500 MG TABLET (FP) PO SCH (06:39)
[2020-05-07 09:45] LABS: BASO % 0.3 % (0-2.0); EOS % 0.4 % (0-4.5); HEMATOCRIT 36.3 % (32.4-45.2); HEMOGLOBIN 12.2 GM/dL (10.7-15.3); LYMPH % 22.2 % (8-40); MCH 28.3 pg (25.7-33.7); MCHC 33.6 g/dl (32.0-36.0); MEAN CELL VOLUME 84.4 fl (80-96); MEAN PLT VOLUME 8.1 fl (7.5-11.1); MONO % 7.4 % (3.8-10.2); NEUT % 69.7 % (42.8-82.8); PLATELET COUNT 196 K/MM3 (134-434); RDW 13.4 % (11.6-15.6); WHITE BLOOD COUNT 8.7 K/mm3 (4.0-10.0)
[2020-05-07 09:51] LABS: ALBUMIN 2.5 g/dl (3.4-5.0); BLOOD UREA NITROGEN 13.4 mg/dL (7-18); CALCIUM 8.5 mg/dL (8.5-10.1); CREATININE 0.7 mg/dL (0.55-1.3); POTASSIUM 3.8 mmol/L (3.5-5.1); TOT PROT 5.6 g/dl (6.4-8.2)
--- NOTE | 2020-05-07 11:42 | PN ---
Physical Exam: SUBJECTIVE: Patient seen and examined at bedside. Feels ok. OBJECTIVE: Vital Signs Period Temp Pulse Resp BP Sys/Garcia Pulse Ox Last 24 Hr 98.4 F-99.5 F 87-90 18-18 104-158/56-74 97 Gen: AAOx3, NAD HEENT: edentulous, moist membranes Neck: supple, no jvd Cardio: rrr, normal s1s2, 3/6 systolic murmur heard throughout precordium Pulm: cta b/l Abd: soft, nontender, nondistended Ext: no edema Skin: numerous tattoos Laboratory Results - last 24 hr 05/05/20 05/06/20 05/06/20 11:10 11:41 16:08 WBC RBC Hgb Hct MCV MCH MCHC RDW Plt Count MPV Absolute Neuts (auto) Neutrophils % Lymphocytes % Monocytes % Eosinophils % Basophils % Nucleated RBC % Sodium Potassium Chloride Carbon Dioxide Anion Gap BUN Creatinine Est GFR (CKD-EPI)AfAm Est GFR (CKD-EPI)NonAf POC Glucometer 249 184 Random Glucose Calcium Total Bilirubin AST ALT Alkaline Phosphatase Total Protein Albumin COVID-19 (IVÁN) Not detected 05/06/20 05/07/20 05/07/20 21:45 06:15 08:30 WBC 8.7 RBC 4.30 Hgb 12.2 Hct 36.3 MCV 84.4 MCH 28.3 MCHC 33.6 RDW 13.4 Plt Count 196 MPV 8.1 Absolute Neuts (auto) 6.1 Neutrophils % 69.7 Lymphocytes % 22.2 D Monocytes % 7.4 Eosinophils % 0.4 D Basophils % 0.3 Nucleated RBC % 0 Sodium Potassium Chloride Carbon Dioxide Anion Gap BUN Creatinine Est GFR (CKD-EPI)AfAm Est GFR (CKD-EPI)NonAf POC Glucometer 159 181 Random Glucose Calcium Total Bilirubin AST ALT Alkaline Phosphatase Total Protein Albumin COVID-19 (IVÁN) 05/07/20 05/07/20 08:30 11:12 WBC RBC Hgb Hct MCV MCH MCHC RDW Plt Count MPV Absolute Neuts (auto) Neutrophils % Lymphocytes % Monocytes % Eosinophils % Basophils % Nucleated RBC % Sodium 139 Potassium 3.8 Chloride 106 Carbon Dioxide 16 L Anion Gap 16 BUN 13.4 Creatinine 0.7 Est GFR (CKD-EPI)AfAm 109.91 Est GFR (CKD-EPI)NonAf 94.84 POC Glucometer 202 Random Glucose 195 H Calcium 8.5 Total Bilirubin 1.0 AST 12 L ALT 14 Alkaline Phosphatase 78 Total Protein 5.6 L Albumin 2.5 L COVID-19 (IVÁN) Active Medications Generic Name Dose Route Start Last Admin Trade Name Kaiserq PRN Reason Stop Dose Admin Glimepiride 4 mg 05/07/20 07:00 Amaryl - PO DAILY@0700 [facility] Heparin Sodium (Porcine) 5,000 unit 05/05/20 23:00 05/07/20 06:39 Heparin - SQ 5,000 unit TID ANTONIO Administration Sodium Chloride 1,000 mls @ 83 mls/hr 05/06/20 09:20 05/07/20 03:03 Normal Saline - IV 83 mls/hr ASDIR ANTONIO Administration Insulin Aspart 1 vial 05/06/20 07:00 05/07/20 06:38 Novolog Vial Sliding Scale - SQ Not Given ACHS [facility] Protocol Metformin HCl 500 mg 05/07/20 07:00 05/07/20 06:39 Glucophage - PO 500 mg DAILY@0700 ANTONIO Administration ASSESSMENT/PLAN: 60 y/o F PMHx NIDDM with neuropathy who presented with AMS + Nausea/Vomiting. She was admitted for HHS. DM -DKA vs HHS: Resolved -On ISS w/ BGM -Glipizide/metformin HTN -Lopressor Renal Mass -noted on renal U/S -CT consistent with U/S findings -Urology consulted -Heme/Onc consulted -IR consult for biopsy Gall bladder distension -initially with mild transaminitis -noted on renal U/S -f/u HIDA -GI consulted. Pt cannot have MRCP. Recommend EUS as outpt (Advanced Biliary Endoscopist Dr. Karthikeyan Catherine at [facility]. [phone]). If clinical deterioration, recommend broad coverage and ERCP PPx -DVT: [facility] Visit type - Emergency Visit Emergency Visit: Yes ED Registration Date: 05/05/20 Care time: The patient presented to the Emergency Department on the above date and was hospitalized for further evaluation of their emergent condition. - New Patient This patient is new to me today: Yes Date on this admission: 05/07/20 - Critical Care Critical Care patient: No ATTENDING PHYSICIAN STATEMENT I saw and evaluated the patient. I reviewed the resident's note and discussed the case with the resident. I agree with the resident's findings and plan as documented. SUBJECTIVE: OBJECTIVE: ASSESSMENT AND PLAN:
--- NOTE | 2020-05-07 11:47 | PN ---
Teaching Attending Note Name of Resident: Augie Guzman ATTENDING PHYSICIAN STATEMENT I saw and evaluated the patient. I reviewed the resident's note and discussed the case with the resident. I agree with the resident's findings and plan as documented. SUBJECTIVE:She is comfortable has no new symptoms OBJECTIVE: Vital Signs Period Temp Pulse Resp BP Sys/Garcia Pulse Ox Last 24 Hr 98.4 F-99.5 F 87-90 18-18 104-158/56-74 97 Patient is comfortable HEENT normal Neck supple no JVD Lungs clear no wheezing Abdomen nontender no organomegaly bowel sounds normal Extremities no edema no cyanosis normal pulses Neurologically he is alert awake oriented, nonfocal Skin no rash noted CBC, BMP 05/07/20 08:30 05/07/20 08:30 ASSESSMENT AND PLAN: 60 y/o F PMHx NIDDM with neuropathy who presented with AMS + Nausea/Vomiting. She was admitted for HHS. DM -DKA vs HHS: Resolved -On ISS w/ BGM -Glipizide HTN -Lopressor Renal Mass -noted on renal U/S -CT consistent with U/S findings -Urology consulted -Heme/Onc consulted -IR consult for biopsy Gall bladder distension -initially with mild transaminitis -noted on renal U/S -f/u HIDA -GI consulted. Pt cannot have MRCP. Recommend EUS as outpt (Advanced Biliary Endoscopist Dr. Karthikeyan Catherine at [facility]. [phone]). If clinical deterioration, recommend broad coverage and ERCP
--- NOTE | 2020-05-07 12:51 | CON.HO ---
Consult Consult Specialty:: Oncology Referred by:: Kidney mass - History of Present Illness Chief Complaint: nausea and vomiting History of Present Illness: 60F admitted for evaluation of N/V and blood glucose >800 and altered mental status. started to feel weak and nauseated. Go reveiwed USG and she gallstones and CBD of 1cm, MRCP is not possible due to a metal plate in the head. She denies past kidney problems or FH of it. She had not been complaint with metformin that was prescribed last year. She does [employer] insurance. USG found a right kidney mass 3.8 x 3.6 x 5.3. 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) Endocrine: Yes: Diabetes Mellitus (DM II) - Alcohol/Substance Use Hx Alcohol Use: No - Smoking History Smoking history: Never smoked Home Medications - Allergies Allergies/Adverse Reactions: Allergies Allergy/AdvReac Type Severity Reaction Status Date / Time No Known Allergies Allergy Verified 05/06/20 09:35 - Home Medications Home Medications: Ambulatory Orders Metformin HCl [Glucophage] 500 mg PO BID #120 tablet 06/27/19 Physical Exam Vital Signs: Vital Signs Temperature 98.8 F 05/07/20 10:00 Pulse Rate 90 05/07/20 10:00 Respiratory Rate 18 05/07/20 10:00 Blood Pressure 143/74 05/07/20 10:00 O2 Sat by Pulse Oximetry (%) 97 05/06/20 21:00 Constitutional: Yes: Well Nourished, No Distress Eyes: Yes: WNL HENT: Yes: WNL Neck: Yes: WNL Cardiovascular: Yes: WNL Respiratory: Yes: WNL Gastrointestinal: Yes: WNL Renal/: Yes: WNL Musculoskeletal: Yes: WNL Extremities: Yes: WNL Integumentary: Yes: WNL Labs: CBC, BMP 05/07/20 08:30 05/07/20 08:30 Assessment/Plan Hereogenouskdney mass - suspicious of malignancy. Urology consultation for a nephrectomy. Galbladder scan today is suggestive of cholecytitis and the kidney finding may be incidental. Soocial Work to work on the insurane issue.
--- NOTE | 2020-05-07 18:42 | CONSULT ---
Consult - text type - Consultation Consultation Note: CC: right renal mass hpi; patient admitted with hyperglycemia and nausea and vomiting. Patient found to have a right enhancing renal mass consistent with renal cell carcinoma. Patient denies any gross hematuria or right flank pain. PE vss; afeb abd-soft, nontender; no CVAT imp right renal mass plan patient is urologically cleared for d/c will follow up as outpatient to arrange surgical intervention
[2020-05-07] MEDS ORDERED: INSULIN (NOVOLOG) ASPART 100 UNITS/ML 10ML VIAL ONE (21:49)
[2020-05-07] MEDS ORDERED: INSULIN (LEVEMIR) 100 UNITS/ML UNITS SQ SCH (22:00)
[2020-05-08] MEDS ORDERED: PT OWN MED DRAWER 7, Y5N ONE (06:12)
[2020-05-08] MEDS: metFORMIN HCL 500 MG TABLET (FP) PO SCH (06:32)
[2020-05-08] MEDS: GLIMEPIRIDE 4 MG TABLET PO SCH (06:32)
[2020-05-08] MEDS: HEPARIN NA (PORCINE) 5,000 UNITS/ML 1ML VIAL SQ SCH ×3 (06:33→21:51)
[2020-05-08] MEDS: INSULIN SLIDING SCALE (NOVOLOG) 1 VIAL SQ SCH ×4 (06:33→21:51)
[2020-05-08 08:30] LABS: INR 0.97 (0.83-1.09); PROTHROMBIN TIME (PATIENT) 11.5 SEC (9.7-13.0)
[2020-05-08 08:38] LABS: BASO % 0.3 % (0-2.0); EOS % 0.8 % (0-4.5); HEMATOCRIT 33.5 % (32.4-45.2); HEMOGLOBIN 11.5 GM/dL (10.7-15.3); LYMPH % 24.6 % (8-40); MCH 28.7 pg (25.7-33.7); MCHC 34.4 g/dl (32.0-36.0); MEAN CELL VOLUME 83.4 fl (80-96); MEAN PLT VOLUME 7.9 fl (7.5-11.1); MONO % 6.6 % (3.8-10.2); NEUT % 67.7 % (42.8-82.8); PLATELET COUNT 179 K/MM3 (134-434); RBC 4.01 M/mm3 (3.60-5.2); RDW 13.2 % (11.6-15.6); WHITE BLOOD COUNT 7.8 K/mm3 (4.0-10.0)
[2020-05-08 08:43] LABS: BLOOD UREA NITROGEN 10.4 mg/dL (7-18); CALCIUM 8.1 mg/dL (8.5-10.1); CREATININE 0.6 mg/dL (0.55-1.3); POTASSIUM 3.3 mmol/L (3.5-5.1)
[2020-05-08] MEDS ORDERED: POTASSIUM CHLORIDE TABS 20 MEQ TABLET.ER (FP) PO ONE (10:12)
--- NOTE | 2020-05-08 10:12 | PN ---
Progress Note (short form) - Note Progress Note: Much better has no fever no chills her sugar is coming down she is hungry. Seen by oncologist yesterday. Vital Signs Period Temp Pulse Resp BP Sys/Garcia Pulse Ox Last 24 Hr 97.9 F-99.4 F 85-98 18-20 132-155/57-73 97 Patient is comfortable HEENT normal Neck supple no JVD Lungs clear no wheezing Abdomen nontender no organomegaly bowel sounds normal Extremities no edema no cyanosis normal pulses Neurologically he is alert awake oriented, nonfocal Skin no rash noted CBC, BMP 05/08/20 07:56 05/08/20 07:56 ASSESSMENT AND PLAN: 60 y/o F PMHx NIDDM with neuropathy who presented with AMS + Nausea/Vomiting. She was admitted for HHS. DM -DKA vs HHS: Resolved -On ISS w/ BGM -Glipizide HTN -Lopressor Renal Mass She needs to be followed up with the urologist outpatient and hematology as outpatient Gall bladder distension Going to have elective surgery outpatient Stop the IV fluids if she improved today maybe later on discharged home Visit type - Emergency Visit Emergency Visit: Yes ED Registration Date: 05/05/20 Care time: The patient presented to the Emergency Department on the above date and was hospitalized for further evaluation of their emergent condition. - New Patient This patient is new to me today: No - Critical Care Critical Care patient: No - Discharge Referral Referred to [facility] Med P.C[facility] No
[2020-05-08] MEDS: SODIUM CHLORIDE 1,000 ML IV SCH (11:03)
[2020-05-09] MEDS ORDERED: PT OWN MED DRAWER 7, Y5N ONE (06:32)
[2020-05-09] MEDS: metFORMIN HCL 500 MG TABLET (FP) PO SCH (06:36)
[2020-05-09] MEDS: HEPARIN NA (PORCINE) 5,000 UNITS/ML 1ML VIAL SQ SCH ×3 (06:36→21:11)
[2020-05-09] MEDS: INSULIN SLIDING SCALE (NOVOLOG) 1 VIAL SQ SCH ×4 (06:36→21:11)
[2020-05-09] MEDS: GLIMEPIRIDE 4 MG TABLET PO SCH (06:37)
--- NOTE | 2020-05-09 10:45 | PN ---
Progress Note (short form) - Note Progress Note: Much better has no fever no chills her sugar is coming down she is hungry. Seen by oncologist yesterday. Vital Signs Period Temp Pulse Resp BP Sys/Garcia Pulse Ox Last 24 Hr 98.3 F-98.7 F 84-90 18-20 136-158/67-80 95 Patient is comfortable HEENT normal Neck supple no JVD Lungs clear no wheezing Abdomen nontender no organomegaly bowel sounds normal Extremities no edema no cyanosis normal pulses Neurologically he is alert awake oriented, nonfocal Skin no rash noted CBC, BMP 05/08/20 07:56 05/08/20 07:56 ASSESSMENT AND PLAN: 60 y/o F PMHx NIDDM with neuropathy who presented with AMS + Nausea/Vomiting. She was admitted for HHS. DM -DKA vs HHS: Resolved -On ISS w/ BGM -Glipizide HTN -Lopressor Renal Mass She needs to be followed up with the urologist outpatient and hematology as outpatient Gall bladder distension Going to have elective surgery outpatient She is very discharged home but nobody picked her up she is making some phone call so she will go home tomorrow morning. Visit type - Emergency Visit Emergency Visit: Yes ED Registration Date: 05/05/20 Care time: The patient presented to the Emergency Department on the above date a nd was hospitalized for further evaluation of their emergent condition. - New Patient This patient is new to me today: No - Critical Care Critical Care patient: No - Discharge Referral Referred to [facility] Med P.C.: No
[2020-05-09] MEDS ORDERED: INSULIN (NOVOLOG) ASPART 100 UNITS/ML 10ML VIAL ONE (21:05)
[2020-05-10] MEDS ORDERED: PT OWN MED DRAWER 7, Y5N ONE (06:07)
[2020-05-10] MEDS: HEPARIN NA (PORCINE) 5,000 UNITS/ML 1ML VIAL SQ SCH (06:16)
[2020-05-10] MEDS: INSULIN SLIDING SCALE (NOVOLOG) 1 VIAL SQ SCH ×2 (06:17→11:56)
[2020-05-10] MEDS: GLIMEPIRIDE 4 MG TABLET PO SCH (06:17)
[2020-05-10] MEDS: metFORMIN HCL 500 MG TABLET (FP) PO SCH (06:17)
--- NOTE | 2020-05-10 09:00 | PN ---
Teaching Attending Note Name of Resident: Augie Guzman ATTENDING PHYSICIAN STATEMENT I saw and evaluated the patient. I reviewed the resident's note and discussed the case with the resident. I agree with the resident's findings and plan as documented. SUBJECTIVE: OBJECTIVE: ASSESSMENT AND PLAN: Patient is being discharged home today. Problem 1 is diabetes she will go home on medication which is controlled in the hospital metformin and glimepiride. For renal tumor patient is cleared by urologist to be seen in the office and do outpatient intervention and surgical intervention. She has her phone number and she could call and make an appointment. I also gave her my office phone number to her that if she can get any help she come to my office I will rearrange everything for her. At this time she has no insurance but she will get some insurance. Advised her if she cannot get any intervention by any then she has to come back to the ER and then will readmit back to the hospital for possible surgical intervention. She also have a phone number of the oncologist Dr. Raphael and she will follow with him and then we will give chemotherapy according to her biopsy comes out. She understood the risk and explained to her all the detail phenomena and future how is going to go.
--- NOTE | 2020-05-10 10:17 | PN ---
Progress Note (short form) - Note Progress Note: CT scan finding noted: ? thickening of sigmoid (in setting of diverticulosis) HIDA scan finding noted: no filling of gallbladder Advise: Surgical follow-up regarding + HIDA Outpatient follow-up to discuss colonoscopy Other recommendations per initial consult Recall GI as needed Problem List - Problems (1) Common bile duct dilatation Code(s): K83.8 - OTHER SPECIFIED DISEASES OF BILIARY TRACT (2) Screening for colorectal cancer Code(s): Z12.11 - ENCOUNTER FOR SCREENING FOR MALIGNANT NEOPLASM OF COLON; Z12.12 - ENCOUNTER FOR SCREENING FOR MALIGNANT NEOPLASM OF RECTUM
[2020-05-10 10:23] VITALS: BP 139/78; PULSE 92; TEMP 98
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
== END 2020-05-10 13:31 | disposition home or self-care (01) | DRG 637 ==
LOC: JER 21:36 → JERBED 05-05 07:08 → J5S 05-06 02:28
PROVIDERS: ADMIT Internal Medicine; ATTEND Internal Medicine
DX: E11.65 Type 2 diabetes mellitus with hyperglycemia (principal); E11.10 Type 2 diabetes mellitus with ketoacidosis without coma; N17.9 Acute kidney failure, unspecified; M62.82 Rhabdomyolysis; E46 Unspecified protein-calorie malnutrition; R11.2 Nausea with vomiting, unspecified; N28.89 Other specified disorders of kidney and ureter; R01.1 Cardiac murmur, unspecified; I10 Essential (primary) hypertension; Z68.25 Body mass index [BMI] 25.0-25.9, adult; E86.0 Dehydration; K80.20 Calculus of gallbladder without cholecystitis without obstruction; E88.09 Other disorders of plasma-protein metabolism, not elsewhere classified; D72.829 Elevated white blood cell count, unspecified; R41.82 Altered mental status, unspecified; R35.8 Other polyuria; Z91.14 Patient's other noncompliance with medication regimen; E11.40 Type 2 diabetes mellitus with diabetic neuropathy, unspecified; K83.8 Other specified diseases of biliary tract; Z12.12 Encounter for screening for malignant neoplasm of rectum
CPT/HCPCS: 36415; 71045-TC-FY; 74178-TC; 76775-TC; 78226-TC; 80048; 80053; 81003; 82010; 82550; 82570; 82803; 82962; 83690; 83735; 84100; 84156; 84484; 85025; 85610; 93005; 93010; 97116-GP; 97161-GP; 99285-25; A9537; J1644; Q9967; U0003

== ENCOUNTER 2020-08-13 23:18 | Inpatient (IN) | payer OTHER ==
--- NOTE | 2020-08-13 23:32 | PDOC ---
Attending Attestation - Resident Resident Name: Derrick Fair - ED Attending Attestation I have performed the following: I have examined & evaluated the patient, The case was reviewed & discussed with the resident, I agree w/resident's findings & plan - HPI HPI: 08/14/20 01:35 Pt comes with 3 days of drenching sweats and low blood sugars. She was given glypizide 4mg PO and she had 3 refills which she has been using. Now it seems to be too much. Pt states that 3 weeks ago since her kidney 40% resection due to cancer, she has been experiencing low blood sugars. Pt has decreased appetite. - Physicial Exam PE: 08/14/20 02:29 Normal exam except pt is tachycardic regular rhythm lungs clear bilat Pt has soft NT ND no flank pain Pt has normal neuro exam Normal extremities Agree with resident exam - Medical Decision Making 08/14/20 02:30 Pt has UTI and tachycardia and no PMD follow up and she is unaware of her meds and whether she should take 2mg of glypizide instead of the 4mg that she is on. Pt will be admitted for her hypoglycemia and her lack of follow up, and the fact that glipizide is long acting and her blood sugar was 30s when EMS found her. Discharge - Discharge Information Problems reviewed: Yes Clinical Impression/Diagnosis: Hypoglycemia, Diabetes Condition: Stable Disposition: HOME - Follow up/Referral - Patient Discharge Instructions - Post Discharge Activity
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
--- OUTSIDE RECORDS SUMMARY | 2020-08-13 23:56 | XMS ---
:1960 Author Organization [facility] Care Team Providers Name Role Phone ABAALEXMARILUZ Unavailable Unavailable RIYA YATES Unavailable Unavailable MELANIE DE LA PAZ Unavailable Unavailable PAM BORJA Unavailable Unavailable JIGAR MURPHY Unavailable Unavailable ARRON DIAZ Unavailable Unavailable SWATHI CRAMER Unavailable Unavailable AIDEN SANCHEZ Unavailable Unavailable JASMIN LEWIS Unavailable Unavailable Re-disclosure Warning The records that you are about to access may contain information from federally- assisted alcohol or drug abuse programs. If such information is present, then the following federally mandated warning applies: This information has been disclosed to you from records protected by federal confidentiality rules (42 CFR part 2). The federal rules prohibit you from making any further disclosure of this information unless further disclosure is expressly permitted by the written consent of the person to whom it pertains or as otherwise permitted by 42 CFR part 2. A general authorization for the release of medical or other information is NOT sufficient for this purpose. The Federal rules restrict any use of the information to criminally investigate or prosecute any alcohol or drug abuse patient.The records that you are about to access may contain highly sensitive health information, the redisclosure of which is protected by Article 27-F of the [place] State Public Health law. If you continue you may haveaccess to information: Regarding HIV / AIDS; Provided by facilities licensed or operated by the [facility] Office of Mental Health; or Provided by the [facility] Office for People With Developmental Disabilities. If such information is present, then the following [facility] mandated warning applies: This information has been disclosed to you from confidential records which are protected by state law. State law prohibits you from making any further disclosure of this information without the specific written consent of the person to whom it pertains, or as otherwise permitted by law. Any unauthorized further disclosure in violation of state law may result in a fine or mcfp sentence or both. A general authorization for the release of medical or other information is NOT sufficient authorization for further disclosure. Allergies and Adverse Reactions Type Description Substance Reaction Status Data Source(s ) Drug allergy No Known Drug No Known Drug [facility] Allergies [facility] No Known No Known Allergies No Known [facility] ( [facility] Allergies Allergies [facility]) Encounters Encounter Providers Location Date Indications Data Source(s ) Inpatient Attender: ABA 07/23/2020 N28.89 [facility] ALEXBANNERAdmitter: 01:58:00 PM Health C are RIYA YATES - Jessica BhattiReferrer: 07/31/2020 RIYA YATES 03:43:[address] [facility] N28.89 Outpatient Attender: MILAN 07/23/2020 06:00:00 N28.89 [facility] RIYA BhattiAdmitter: [facility] RIYA ArmendarizReferrer: RIYA YATES N28.89 Outpatient Attender: ABA 07/23/2020 05:49:00 N28.89 [facility] MARILUZAttender: TRISTIN YATES [facility] RIYA BhattiAdmitter: Corporat ion RIYA YATESReferrer: RIYA YATES N28.89 Outpatient Attender: JONH 07/20/2020 11:31:00 N28.89 [facility] HUMJONOUNAdmitter: TRISTIN BORJA [facility] HUMAYUNReferrer: Uche TRONCOSO MARILUZ N28.89 Outpatient Attender: SHOAIB 07/20/2020 06:00:00 Z03.818 [facility] SWATHI MarksAdmitter: [facility] SWATHI CRAMER Corpora tion Z03.818 Outpatient Attender: DANIEL 07/01/2020 01:00:00 PM [facility] AIDEN PhilipAdmitter: [facility] AIDEN SANCHEZ Outpatient Attender: EMILY, 06/22/2020 06:00:00 AM [place] [facility] REENAAdmitter: EMILY [facility] ARRON [place] Outpatient Attender: ANA CRISTINA 06/11/2020 N28.89 CPT [facility] MELANIE Lawson.Admitter: 12:04:00 PM EDT [id number] [facility] MELANIE DE LA PAZo n AdilsonReferrer: MELANIE DE LA PAZ N28.89 CPT [id number] Outpatient Attender: JOSHUA 06/11/2020 06:00:00 N28.89 [facility] TANYAAdmitter: JOSHUA [facility] TANYAReferrer: JIGAR MURPHY [facility] N28.89 Outpatient Attender: ANA CRISTINA 06/10/2020 [facility] MELANIE D eAndaAttender: 11:55:00 AM EDT [facility] AIDEN SANCHEZ MargaritaYvetteAdmitter: MELANIE DE LA PAZ Outpatient [place] [facility] 07/28/2019 eCW3 ([facility] A28 12:00:00 AM EDT - [facility]) 07/28/2019 12:00:00 AM EDT Immunizations Vaccine Date Status Description Data Source(s) New in 2011. IIV4 07/28/2019 11:43:00 completed eC W3 ([facility]) Medications Medication Brand Start Product Dose Route Administrative Pharmacy [facility] Indications Reaction Description Data Name Date Form Instructions Instructions Source(s) glimepiride Glimep W estcheste 4 MG Oral iride 2019 ed [facility] Tablet [4 mg 12:00: Health Glimepiride Tablet 00 AM Care [4 mg ]: 1 EDT Corporatio Tablet]: 1 Tablet n Tablet Oral Oral DAILY DAILY Metformin Metfor Lazaro tcheste hydrochlori min 2019 ed r [facility] de 500 MG [500 12:00: Health Oral Tablet mg 00 AM Care Metformin Tablet EDT Corporat io [500 mg ]: 1 n Tablet]: 1 Tablet Tablet Oral Oral 2 2 TIMES A TIMES DAY A DAY Lancets - Lancet 07/28/ active Lancets - eCW3 s - 2018 ([facility] 12:00: [place] 00 AM Health EDT Care) Isopropyl Alcoho active Alcohol P rep eCW3 Alcohol 0.7 l Prep 2018 70 % ([place] ML/ML 70 % 12:00: [place] Medicated 00 AM Health Pad Alcohol EDT Care) Prep 70 % Gauze Pads Gauze active Gauze Pad s eCW3 2"X2" Pads 2018 2"X2" ([facility] 2"X2" 12:00: [place] 00 AM Health EDT Care) Blood Blood active Blood eCW3 Glucose Glucos 2018 Glucose Test (H udson Test - e Test 12:00: - [place] - 00 AM Health EDT Care) Metformin Metfor 1.0 active Metformin e CW3 hydrochlori min {tabl HCl 1000 MG ([facility] de 1000 MG HCl et_wi [place] Oral Tablet 1000 th_fl Health Metformin MG als} [facility]) HCl 1000 MG Insurance Providers Payer name Policy type Policy ID Covered Covered libertarian's Policy P concha / Coverage libertarian ID relationship to [employer] [facility] [employer] type baxter HEALTH [id number] SP [id number] SOLUTIONS MEDICARE [id number] SP [id number] HEALTH [id number] SP [id number] SOLUTIONS SELF PAY SP INSURANCE 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) Diagnosis 020 [place] use of oral USE OF ORAL 03:43:00 PM [facility] th hypoglycemic drugs HYPOGLYCEMIC DRUGS EDT Care Corporation R74.0 Nonspecific NONSPEC ELEV OF Diagnosis 07/31/2020 [facility] elevation of levels LEVELS OF TRANSAMNS 03:43:0 0 PM [facility] of transaminase and and LACTIC ACID EDT Care lactic acid DEHYDRGNSE Corporation dehydrogenase [LDH] K80.20 Calculus of CALCULUS OF Diagnosis 07/31/2020 [place] gallbladder without GALLBLADDER W/O 03:43:00 PM [facility] cholecystitis CHOLECYSTITIS W/O EDT Care without obstruction OBSTRUCTION [place] oration G47.33 Obstructive sleep OBSTRUCTIVE SLEEP Diagnosis 07/31/2020 [place] apnea (adult) APNEA (ADULT) 03:43:00 PM [facility] (pediatric) (PEDIATRIC) EDT Care [employer] E11.65 Type 2 diabetes TYPE 2 DIABETES Diagnosis 07/31/2020 [place] mellitus with MELLITUS WITH 03:43:00 PM [facility] hyperglycemia HYPERGLYCEMIA EDT Care [employer] Z20.828 Contact with and CONTACT W AND Diagnosis 07/31/2020 [facility] geraldine (suspected) EXPOSURE TO OTH 03:43:00 PM [facility] exposure to other VIRAL COMMUNICABLE EDT Care viral communicable DISEASES Corpor ation diseases E83.51 Hypocalcemia HYPOCALCEMIA Diagnosis 07/31/2020 [facility] r 03:43:00 PM [facility] EDT Care [employer] E11.40 Type 2 diabetes TYPE 2 DIABETES Diagnosis 07/31/2020 [place] mellitus with MELLITUS WITH 03:43:00 PM [facility] diabetic DIABETIC EDT Care neuropathy, NEUROPATHY, UNSP Corpora tion unspecified N17.9 Acute kidney ACUTE KIDNEY Diagnosis 07/31/2020 [facility] r failure, FAILURE, 03:43:00 PM [facility] unspecified UNSPECIFIED EDT Care [employer] D62 Acute ACUTE Diagnosis 07/31/2020 [place] posthemorrhagic POSTHEMORRHAGIC 03:43:[address] [facility] [employer] anemia ANEMIA EDT Care [employer] C64.1 Malignant neoplasm MALIGNANT NEOPLASM Diagnosis 0 [place] of right kidney, OF RIGHT KIDNEY, 01:58:00 PM [place] except renal pelvis EXCEPT RENAL PELVIS EDT Care [employer] N28.89 Other specified OTHER SPECIFIED Diagnosis 07/20/2020 [place] disorders of kidney DISORDERS OF KIDNEY 11:31:0 0 AM [facility] and ureter AND URETER EDT Care [employer] Z03.818 Encounter for ENCNTR FOR OBS FOR Diagnosis 07/20/2020 [place] observation for SUSP EXPSR TO OTH 06:00:00 AM C [employer] suspected exposure BIOLG AGENTS RULED EDT Care to other biological OUT Corpo ration agents ruled out E11.9 Type 2 diabetes TYPE 2 DIABETES Diagnosis 07/01/2020 [place] mellitus without MELLITUS WITHOUT 01:00:00 PM [place] complications COMPLICATIONS EDT Care [employer] N28.9 Disorder of kidney DISORDER OF KIDNEY Diagnosis 0 [place] and ureter, AND URETER, 01:00:00 PM [facility] unspecified UNSPECIFIED EDT Care [employer] Z01.818 Encounter for other ENCOUNTER FOR OTHER Diagnosis 020 [place] preprocedural PREPROCEDURAL 01:00:00 PM [facility] examination EXAMINATION EDT Care [employer] K80.80 Other OTHER Diagnosis 06/22/2020 [place] cholelithiasis CHOLELITHIASIS 06:00:00 AM Count y Health without obstruction WITHOUT OBSTRUCTION EDT Care [employer] N30.90 Cystitis, CYSTITIS, Diagnosis 06/22/2020 [place] unspecified without UNSPECIFIED WITHOUT 06:00:0 0 AM [facility] hematuria HEMATURIA EDT Care [employer] Results ID Date Data Source [id number] 07/31/2020 07:25:00 AM EDT [facility] [id number] Corporation Name Value Range Interpretation Description Data Sup porting Code Source(s) Document(s ) Erythrocytes 3.42 m/mm3 3.90-5 <td> 07/31/2020 [facility] r [#/volume] in .20 07:25</td><td> [facility] Blood m/mm3 RBC Health Care </td><td><juanpablo [employer] raph styleCode="Bold "> 3.42 L </paragraph>
(3.90-5.20) m/mm3 </td> Leukocytes 8.3 k/mm3 4.8-10 <td> 07/31/2020 [place] [#/volume] in .8 07:25</td><td> [facility] Blood by k/mm3 WBC </td><td> Health Care Automated [employer] count 8.3
(4.8-10.8) k/mm3 </td> Erythrocyte 90.6 fL 81.0-9 <td> 07/31/2020 [place] mean 9.0 fL 07:25</td><td> [facility] corpuscular MCV </td><td> Health Care volume [employer] [Entitic 90.6 volume] by Automated
count (81.0-99.0) fL </td> Hemoglobin 10.0 g/dL 12.0-1 <td> 07/31/2020 [place] [Mass/volume] 6.0 07:25</td><td> County in Blood g/dL HGB Health Care </td><td><Tumri raph styleCode="Bold "> 10.0 L </paragraph>
(12.0-16.0) g/dL </td> Hematocrit 31.0 % 37.0-4 <td> 07/31/2020 [place] [Volume 7.0 % 07:25</td><td> County Fraction] of HCT Health Care Blood by </td><td><Tumri Automated raph count styleCode="Bold "> 31.0 L </paragraph>
(37.0-47.0) % </td> Erythrocyte 29.2 pg 27.0-3 <td> 07/31/2020 [place] mean 1.5 pg 07:25</td><td> [facility] corpuscular MCH </td><td> Health Care hemoglobin Corporation [Entitic mass] 29.2 by Automated count
(27.0-31.5) pg </td> Erythrocyte 32.3 % 32.0-3 <td> 07/31/2020 [place] mean 6.0 % 07:25</td><td> [facility] corpuscular MCHC </td><td> Health [facility] hemoglobin Corporation concentration 32.3 [Mass/volume] in Blood from
Fetus by (32.0-36.0) % Automated </td> count Erythrocyte 13.5 % 11.5-1 <td> 07/31/2020 [place] distribution 4.5 % 07:25</td><td> [facility] width [Entitic RDW </td><td> Health Car e volume] by Corporation Automated 13.5 count
(11.5-14.5) % </td> Lymphocytes 24.3 % 17.0-5 <td> 07/28/2020 [place] [#/volume] in 0.0 % 13:25</td><td> [facility] Blood by Lymphocytes Health Care Automated </td><td> Corporation count 24.3
(17.0-50.0) % </td> Platelet mean 10.3 fL 9.8-12 <td> 07/31/2020 [facility] r volume .8 fL 07:25</td><td> [facility] [Entitic MPV </td><td> Health Care volume] in Corporation Blood by 10.3 Automated count
(9.8-12.8) fL </td> Platelets 256 k/mm3 160-41 <td> 07/31/2020 [place] [#/volume] in 0 07:25</td><td> [facility] Blood by k/mm3 Platelet Count Health Care Automated </td><td> [employer] count 256
(160-410) k/mm3 </td> Basophils+Eosi 3.3 % 0.0-5. <td> 07/28/2020 [facility] er nophils+Monocy 0 % 13:25</td><td> [facility] sandra [#/volume] Eosinophils Health Care in Blood by </td><td> [employer] Automated count 3.3
(0.0-5.0) % </td> Immature 0.5 % 0.0-0. <td> 07/28/2020 [place] granulocytes/1 5 % 13:25</td><td> [facility] 00 leukocytes IG% </td><td> Health Care in Blood by [employer] Automated 0.5 count
(0.0-0.5) %
The IG fraction represents metamyelocytes, myelocytes and/or
promyelocytes and is only reported as part of the automated
differential when found at a percentage of less than 6.
If higher than 6%, a manual differential will be performed.

(0.0-0.5) % </td> Basophils 0.2 % 0.0-2. <td> 07/28/2020 [place] [#/volume] in 0 % 13:25</td><td> [facility] Blood by Basophils [facility] Care Automated </td><td> [employer] count 0.2
(0.0-2.0) % </td> Monocytes/Leuk 10.5 % 0.0-11 <td> 07/28/2020 [facility] er ocytes [Pure .0 % 13:25</td><td> County number Monocytes. Health Care fraction] in </td><td> [facility] Blood by Automated 10.5 count
(0.0-11.0) % </td> Basophilic Occasional <td> 07/24/2020 [place] stippling 21:30</td><td> County [Presence] in Basophilic Health Care Blood by Light [employer] microscopy </td><td> Occasional
</td> Neutrophils 61.2 % 40.0-7 <td> 07/28/2020 [place] [#] in Body 6.0 % 13:25</td><td> County fluid by Neutrophils Health Care Manual count </td><td> [employer] 61.2
(40.0-76.0) % </td> Glucose 156 mg/dL 70-105 <td> 07/31/2020 [place] [Mass/volume] mg/dL 07:25</td><td> [place] in Blood Glucose-Serum Health Care </td><td><juanpablo [employer] raph styleCode="Bold "> 156 H </paragraph>
(70-105) mg/dL </td> Anisocytosis Slight <td> 07/27/2020 [place] [Presence] in 14:10</td><td> [facility] Blood by Light Anisocytosis Health Care microscopy </td><td> [employer] Slight
</td> Sodium 138 mEq/L 135-14 <td> 07/31/2020 [place] [Moles/volume] 5 07:25</td><td> [place] in Serum or mEq/L Sodium-Serum Health Care Plasma </td><td> [employer] 138
(135-145) mEq/L </td> Chloride 100 mEq/L 98-107 <td> 07/31/2020 [place] [Moles/volume] mEq/L 07:25</td><td> County in Serum or Chloride Health Care Plasma </td><td> [employer] 100
(98-107) mEq/L </td> Carbon 26 mEq/L 22-30 <td> 07/31/2020 [place] dioxide, total mEq/L 07:25</td><td> County [Moles/volume] CO2 </td><td> Health Car e in Serum or Corporation Plasma 26
(22-30) mEq/L </td> Urea nitrogen 23 mg/dL 6-22 <td> 07/31/2020 [place] [Mass/volume] mg/dL 07:25</td><td> [place] in Blood BUN Health Care </td><td><juanpablo Corporation raph styleCode="Bold "> 23 H </paragraph>
(6-22) mg/dL </td> Potassium 4.2 mEq/L 3.5-5. <td> 07/31/2020 [place] [Moles/volume] 1 07:25</td><td> [place] in Serum or mEq/L Potassium-Serum Health Care Plasma </td><td> [employer] 4.2
(3.5-5.1) mEq/L </td> Bilirubin.tota 0.9 mg/dL 0.2-1. <td> 07/28/2020 [facility] er l 3 01:14</td><td> County [Mass/volume] mg/dL Bilirubin - Health Care in Blood Total Corporation </td><td> 0.9
(0.2-1.3) mg/dL </td> Creatinine 0.94 mg/dL 0.57-1 <td> 07/31/2020 [place] [Moles/volume] .11 07:25</td><td> [place] in Serum or mg/dL Creatinine. Health Care Plasma </td><td> [employer] 0.94
(0.57-1.11) mg/dL </td> Alanine 20 U/L 6-55 <td> 07/28/2020 [place] aminotransfera U/L 01:14</td><td> County se [Enzymatic ALT (SGPT) Health Care activity/volum </td><td> Corporation e] in Serum or Plasma 20
(6-55) U/L </td> Aspartate 19 U/L 4-35 <td> 07/28/2020 [place] aminotransfera U/L 01:14</td><td> [facility] se [Enzymatic AST (SGOT) Health Care activity/volum </td><td> Corporation e] in Serum or Plasma 19
(4-35) U/L </td> Anion gap in 12 mEq/L 7-13 <td> 07/31/2020 [place] Serum or mEq/L 07:25</td><td> [facility] Plasma Anion Gap Health Care </td><td> [employer] 12
(7-13) mEq/L </td> Proteins - 5.1 g/dL 6.4-8. <td> 07/28/2020 [place] Total 3 g/dL 01:14</td><td> [facility] Proteins - [facility] Care Total [employer] </td><td><ONEPLE raph styleCode="Bold "> 5.1 L </paragraph>
(6.4-8.3) g/dL </td> Calcium 8.5 mg/dL 8.6-10 <td> 07/31/2020 [place] [Mass/volume] .2 07:25</td><td> [facility] in Blood mg/dL Calcium Health Care </td><td><Tumri raph styleCode="Bold "> 8.5 L </paragraph>
(8.6-10.2) mg/dL </td> Albumin 2.7 g/dL 3.4-4. <td> 07/28/2020 [place] [Mass/volume] 8 g/dL 01:14</td><td> [facility] in Serum or Albumin Health Care Plasma </td><td><Tumri raph styleCode="Bold "> 2.7 L </paragraph>
(3.4-4.8) g/dL </td> Hemolysis No <td> 07/31/2020 [place] index of Serum Hemolysis 07:25</td><td> County or Plasma Hemolysis Index Health Care </td><td> [employer] No Hemolysis
</td> Phosphate 4.1 mg/dL 2.3-4. <td> 07/31/2020 [place] [Mass/volume] 7 07:25</td><td> County in Serum or mg/dL Inorganic Health Care Plasma Phosphorus [facility] </td><td> 4.1
(2.3-4.7) mg/dL </td> Globulin 2.4 gm/dL 2.9-4. <td> 07/28/2020 [place] [Mass/volume] 0 01:14</td><td> [facility] in Serum gm/dL Globulin Health Care </td><td><juanpablo [facility] raph styleCode="Bold "> 2.4 L </paragraph>
(2.9-4.0) gm/dL </td> Icteric index Non Icteric <td> 07/31/2020 [facility] of Serum or 07:25</td><td> [facility] Plasma Icteric Index Health [facility] </td><td> [employer] Non Icteric
</td> Lipemic index No Lipemia <td> 07/31/2020 [facility] er of Serum or 07:25</td><td> [facility] Plasma Lipemia Index Health [facility] </td><td> [employer] No Lipemia
</td> aPTT panel - 27.4 secs 25.0-3 <td> 07/31/2020 [place] Platelet poor 6.5 07:25</td><td> [facility] plasma secs Partial Health Care Thromboplastin [facility] Time </td><td> 27.4
(25.0-36.5) secs
PLEASE NOTE: New reference range in effect May 31, 2020.

(25.0-36.5) secs </td> Magnesium 1.7 mg/dL 1.6-2. <td> 07/31/2020 [place] [Mass/volume] 6 07:25</td><td> [facility] in Serum or mg/dL Magnesium Level Health Care Plasma </td><td> [employer] 1.7
(1.6-2.6) mg/dL </td> Prothrombin 11.0 secs 9.4-12 <td> 07/31/2020 [place] time (PT) .5 07:25</td><td> [facility] secs Prothrombin Health Care Time. [facility] </td><td> 11.0
(9.4-12.5) secs </td> Fibrinogen 316 mg/dL 200-40 <td> 07/24/2020 [place] [Mass/volume] 0 17:00</td><td> [facility] in Platelet mg/dL Fibrinogen Health Care poor plasma by Level [employer] Coagulation </td><td> assay 316
(200-400) mg/dL
PLEASE NOTE: New reference range in effect May 31, 2020.

(200-400) mg/dL </td> Glucose 157 mg/dL 70-105 <td> 07/31/2020 [place] [Mass/volume] mg/dL 12:07</td><td> County in Capillary Glucose - Health Care blood by Finger Stick [employer] Glucometer </td><td><juanpablo raph styleCode="Bold "> 157 H </paragraph>
(70-105) mg/dL
RN notified

(70-105) mg/dL </td> ID Date Data Source [id number] 07/24/2020 12:00:00 AM EDT [facility] [id number] Corporation Name Value Range Interpretation Description Data Sup porting Code Source(s) Document(s ) Operative Operative <td> 07/24/2020 [place] Report Report </td><td> [facility] NAME: Operative Report Health Care DEDE </td><td>
<br/ Corporation NIKOS >

MR#: Operative Report [id number] ADMIT DATE:

07/23/2020 NAME: ADELINE NORRIS DATE:
MR#: 07/23/2020 [id number] DISCHARGE
ADMIT DATE: DATE: 07/23/2020 SURGEON:
BILLING SURGERY DATE: NUMBER: 07/23/2020 [id number]
DATE OF DISCHARGE DATE: PROCEDURE:
07/23/2020 SURGEON:
BILLING PREOPERATIVE NUMBER: [id number] DIAGNOSIS: Right renal

mass. DATE OF PROCEDURE: POSTOPERATIV 07/23/2020 E DIAGNOSIS:

Right renal PREOPERATIVE mass. DIAGNOSIS: Right OPERATIVE renal mass. INTERVENTION

: Robotic POSTOPERATIVE right DIAGNOSIS: Right partial renal mass. nephrectomy

with OPERATIVE intraoperati INTERVENTION: ve Robotic right ultrasound partial for tumor nephrectomy with localization
. intraoperative SURGEON: ultrasound for annie Quintana M.D. localization. CO-SURGEON:

Riya SURGEON: Aba Mendoza M.D. M.D.

TOWEL INSPECTOR: CO-SURGEON: Mis Omalley M.D.

TOWEL INSPECTOR: ANESTHESIA: General Mis Walker anesthetic.

ANESTHESIA: COMPLICATION General S: None. anesthetic. ESTIMATED

BLOOD LOSS: COMPLICATIONS: 500 mL. None. CLINICAL

PREAMBLE: ESTIMATED BLOOD The patient LOSS: 500 mL. is a

60-year-old CLINICAL woman with a PREAMBLE: The right renal patient is a mass found 60-year-old woman on CT scan. with a right renal It measured
5 cm in size mass found on CT at the mid scan. It measured pole. We 5 cm in size at discussed a the mid pole. We surgical
approach for discussed a this as well surgical approach as for this as well potentially as potentially performing a performing a partial
nephrectomy partial versus a nephrectomy versus radical a radical nephrectomy. nephrectomy. She She was was inclined to inclined to try try to
to preserve preserve renal renal function and thus function and it was decided to thus it was proceed with a decided to
proceed with robotic right a robotic partial right nephrectomy with partial intraoperative nephrectomy ultrasound, with possible intraoperati
ve radical, possible ultrasound, open. possible

radical, Informed consent possible was obtained prior open. to the procedure. Informed consent was

obtained DESCRIPTION OF prior to the PROCEDURE: The procedure. patient was brought to the DESCRIPTION operating room. OF
PROCEDURE: Preoperative check The patient list was complete was brought and intravenous to the antibiotics were operating
room. administered (2 Preoperative grams Ancef). She check list was induced under was complete general and anesthesia. intravenous
Art antibiotics line, 2 large bore were IVs and a Treviño administered catheter were (2 grams placed. She was Ancef). She
was induced transferred to the under flank position general with the right anesthesia. side up. She was Art line, 2 secured large bore
to the IVs and a table with a Treviño bolster as well as catheter a surgical tape. were placed. She was prepped She was
transferred and draped in to the flank normal sterile position fashion. After a with the timeout was right side performed, a up. She was
secured to Veress needle was the table placed with a supraumbilically bolster as and the abdomen well as a was insufflated. surgical
tape. She Following this, was prepped the right kidney and draped was triangulated in normal with 4 robotic sterile ports fashion.
After a measuring 8 mm in timeout was size. A 12 mm performed, a assist port was Veress placed needle was supraumbilically. placed
supraumbilic A 5 mm liver ally and the retractor was abdomen was placed subxiphoid. insufflated. Following this, Following the da this, the
Tahir Xi right kidney robot was docked. was Adhesions along triangulated the gallbladder with 4 and liver were robotic
ports incised with the measuring 8 Metzenbaum mm in size. scissors and A 12 mm cautery. assist port Following this, was placed the supraumbilic
ally. A 5 ascending colon mm liver was mobilized retractor medially with was placed incising along the subxiphoid. white line Following
of this, the da Toldt. The ureter Tahir Xi and gonadal vein robot was were identified. docked. The gonadal vein Adhesions
along the was mobilized gallbladder medially. and liver Following this, we were were able to incised with retract the the
Metzenbaum ureter and kidney scissors and laterally. We cautery. kocherized the Following duodenum and this, the incised the ascending
colon was hepatorenal mobilized ligament. During medially the dissection, with there is evidence incising of large along the
white line parasitic vessels of Toldt. within Gerota The ureter fascia. These and gonadal were controlled vein were using identified.
bipolar The gonadal cautery. vein was Following this, we mobilized were able to track medially. the gonadal vein Following
this, we towards the renal were able to vein. The gonadal retract the vein was found to ureter and insert into the kidney
laterally. medial portion of We the renal vein. kocherized The artery was the duodenum unable to be and incised clearly the
hepatorenal identified and on ligament. preoperative During the imaging it dissection, appeared to be there is cephalad to the evidence of
large renal vein. We parasitic thus placed 2 more vessels robotic ports within laterally and we Gerota
fascia. positioned the These were robot from a controlled retroperitoneal using approach. bipolar Following this, we cautery.
Following further this, we mobilized the were able to kidney within the track the Gerota fascia. We gonadal vein were then able towards
the renal to track the plane vein. The towards the renal gonadal vein artery. It was was found to identified and insert into
the medial isolated from the portion of renal vein. the renal

vein. The Following this, artery was intra-op unable to be ultrasound was clearly placed and we were identified able to and on
localize preoperative the tumor. We imaging it then defatted the appeared to kidney be cephalad circumferentially to the around renal vein.
the We thus tumor with care placed 2 not to remove the more robotic perinephric fat ports over the tumor. laterally
and we Following full positioned circumscription of the robot the tumor, we from a placed 2 large retroperiton bulldog eal
clamps approach. over the renal Following artery that was this, we identified. ICG further was administered. mobilized
the kidney There was still within the evidence of some Gerota mild flow to the fascia. We renal tumor. were then However, able to
we did track the not identify any plane further renal towards the arteries. Thus, renal we began excising artery. It
was the renal tumor. identified This was done with and a combination of isolated sharp dissection from the and renal vein.
cautery. We entered the Following collecting system this, at the base of the intra-op tumor as ultrasound
well as was placed a large venous and we were vessel that lead able to to an increased localize the amount of tumor. We
then bleeding. It was defatted the felt at this time kidney that blood flow to circumferent the kidney was not ially around
the tumor completely with care occluded and there not to was potentially a remove the more superior perinephric renal fat over the
artery. tumor. A ray-dionicio was Following placed in the full abdomen for circumscript pressure ion of the hemostatsis. The tumor, we
placed 2 bleeding was large controlled with bulldog 3-0 V-Loc suture clamps over in a running the renal fashion. After artery that
was hemostasis, we identified. continued to ICG was excise the tumor administered off the kidney. . There We were in was still
evidence of closer proximity some mild to the tumor at flow to the the renal tumor. posterior/superior However, area and saw the we did not
identify any tumor capsule. We further were able to fully renal dissect the tumor arteries. off in an Thus, we
began enucleation excising fashion off the the renal renal bed. The tumor. This tumor was then was done placed away with a
from combination the tumor bed. We of jace then completed our dissection internal layer and renorrhaphy with cautery. We
entered the a running 3-0 collecting V-Loc suture. A system at second layer of the base of closure was the tumor as performed using well as a
large venous another 3-0 V-Loc vessel that suture closing the lead to an external capsule. increased Surgiflo was amount of
bleeding. It placed over top was felt at the renorrhaphy, this time followed by that blood Surgicel. We then flow to the removed kidney was
the not bulldog clamps completely from the renal occluded and artery. Clamp time there was of the renal potentially artery a more
was 53 superior minutes but it was renal felt that there artery. A was ongoing blood ray-dionicio was flow to the placed in
the abdomen kidney due to for pressure bleeding at tumor hemostatsis. excision. The

bleeding was We then removed controlled the bulldog clamps with 3-0 from the body and V-Loc suture examined for in a running
fashion. hemostasis. There After was some mild hemostasis, oozing from the we continued superior area of to excise the the tumor
off the renorrhaphy. This kidney. We is controlled with were in bipolar cautery as closer well as pressure proximity to
the tumor at with Surgicel. the The Ray-Dionicio was posterior/sena used for further perior area pressure. Upon and saw the removal, tumor
there capsule. We was no evidence of were able to bleeding. The fully Ray-Dionicio was then dissect the removed. The tumor off in
an kidney was placed enucleation back in its normal fashion off anatomical the renal position. We bed. The dropped the tumor was
then placed pressure down to 5 away from mmHg and there was the tumor no evidence of any bed. We significant then
completed bleeding from the our internal renorrhaphy bed. layer We then increased renorrhaphy the pressure to with a
running 3-0 12mmHg and V-Loc undocked the suture. A robot. We placed second layer a Andrea-Ray of closure drain in the was
performed retroperitoneal using space and secured another 3-0 it externally with V-Loc suture a nylon suture. closing the All external
the capsule. ports were removed Surgiflo was under direct placed vision and the over top the abdomen was renorrhaphy,
followed by desufflated. The Surgicel. specimen was We then extracted through removed an EndoCatch bag the bulldog from the clamps from
midline the renal incision that was artery. extended. The Clamp time specimen was of the renal extracted in its artery was
53 minutes entirety with but it was gross negative felt that margins. The tumor there was capsule was ongoing visualized and blood flow
to the intact. It was kidney due sent to pathology. to bleeding The fascial layer at tumor was closed using 0 excision.
We then Vicryl suture removed the and the bulldog subcutaneous space clamps from was closed with the body and 2-0 Vicryl. Skin examined for
was closed using hemostasis. 4-0 Monocryls. There was Dressings were some mild applied. The oozing from patient then the superior
area of the underwent a TAP renorrhaphy block by our . This is anesthesia controlled colleagues. The with bipolar patient was then cautery as
well as extubated and then pressure transferred to with recovery in a Surgicel. stable condition. The Ray-Dionicio All was used for
further instruments and pressure. sponge counts were Upon correct at the end removal, of the procedure. there was no
evidence of Estimated blood bleeding. loss was 500 mL. I The Ray-Dionicio was present for was then the entire removed. duration of The kidney
the was placed procedure. back in its normal

<br anatomical />

position. DICT: Grover Quintana dropped M.DYvette the
DD: pressure 07/23/20 07 46 PM down to 5
mmHg and there was no 02:23:06/HN evidence of
any significant

bleeding from the renorrhaphy === END OF bed. We DOCUMENT / CHANGE then LOG FOLLOWS increased the pressure to 12mmHg

and undocked the robot. We placed a Elec. Signed By Larisa
t drain in the retroperiton MARILUZ TRONCOSO [facility] space #[id number] and secured
it externally on with a nylon 07/29/2020 17:06 suture. All ET the ports

</td> were removed under direct vision and the abdomen was desufflated. The specimen was extracted through an EndoCatch bag from the midline incision that was extended. The specimen was extracted in its entirety with gross negative margins. The tumor capsule was visualized and intact. It was sent to pathology. The fascial layer was closed using 0 Vicryl suture and the subcutaneous space was closed with 2-0 Vicryl. Skin was closed using 4-0 Monocryls. Dressings were applied. The patient then underwent a TAP block by our anesthesia colleagues. The patient was then extubated and then transferred to recovery in a stable condition. All instruments and sponge counts were correct at the end of the procedure. Estimated blood loss was 500 mL. I was present for the entire duration of the procedure. DICT: Mariluz Troncoso M.D. 07 46 PM DT: 0 02:23:06/HN ========= END OF DOCUMENT / CHANGE LOG FOLLOWS ===== Elec. Signed By MARILUZ TRONCOSO #[id number] on 07/29/2020 17:06 ET ID Date Data Source [id number] 07/23/2020 10:25:00 AM EDT [facility] [id number] [employer] Name Value Range Interpretation Description Data Sup porting Code Source(s) Document(s ) ABO O POS <td> 07/23/2020 [place] Verification 10:25</td><td> [facility] ABO [employer] </td><td> O POS
</td> ID Date Data Source [id number] 07/21/2020 12:00:00 AM EDT [facility] Name Value Range Interpretation Code Description Data Peyton rce(s) Supporting Document(s ) SARS-COV-2 [place] RNA RT-PCR [facility] This lab was ordered by [facility] and reported by [facility]. ID Date Data Source [id number] 05/05/2020 11:10:00 AM EDT [facility] Name Value Range Interpretation Description Data Sup porting Code Source(s) Document(s ) SARS [facility] CORONAVIRUS 2 RNA This lab was ordered by [facility] and reported by [facility]. Procedure Social History Code Duration Value Status Description Data Source(s ) Smoking 07/28/2019 12:00:00 Never Smoker completed Never Smoker e CW3 ([facility]) Smoking Never smoker completed Never smoker [facility] Never Smoker completed Never Smoker eCW3 ([facility]) Vital Signs ID Date Data Source UNK Name Value Range Interpretation Code Description Data Source(s) Diastolic blood 59 {} Normal (applies to 59 {} [place] pressure non-numeric results) [facility] Systolic blood 127 {} Normal (applies to 127 {} [place] pressure non-numeric results) [facility] First Respiration 18.0000 {} Normal (applies to 18.0000 {} [place] rate Set non-numeric results) [facility] [employer] Heart rate 96.0000 {} Normal (applies to 96.0000 {} [place] non-numeric results) [facility] [employer] Body temperature 98.0000 {} Normal (applies to 98.0000 {} [place] non-numeric results) [facility] [employer] wt - obtain Normal (applies to {} [facility] non-numeric results) [facility] [employer] weight - kg 64.5450 {} Normal (applies to 64.5450 {} [facility] [place] non-numeric results) [facility] Diastolic blood 79 mm[Hg] 79 mm[Hg] eCW3 ([facility]) Systolic blood 141 mm[Hg] 141 mm[Hg] eCW3 ([facility] on pressure [facility]) Heart rate 20 /min 20 /min eCW3 ([facility]) Body mass index 24.06 kg/m2 24.06 kg/m2 eCW3 ([facility] (BMI) [Ratio] [facility]) Body weight 138 [lb_av] 138 [lb_av] eCW3 ([facility]) Body height 63.5 [in_i] 63.5 [in_i] eCW3 ([facility]) Patient Treatment Plan of Care Planned Activity Planned Date Details Description Data Source (s) Isopropyl Alcohol 0.7 07/28/2019 12:00:00 eCW3 ([facility] ML/ML Medicated Pad [facility]) Lancets - 07/28/2019 12:00:[facility] Gauze Pads 2"X2" 07/28/2019 12:00:00 eCW3 ([facility]) Blood Glucose Test - 07/28/2019 12:00:00 eCW3 ([facility]) Metformin hydrochloride eCW3 ([facility] 1000 MG Oral [facility])
[2020-08-14 00:34] LABS: BASO % 0.3 % (0-2.0); HEMATOCRIT 28.8 % (32.4-45.2); HEMOGLOBIN 9.8 GM/dL (10.7-15.3); LYMPH % 18.2 % (8-40); MCH 29.2 pg (25.7-33.7); MCHC 33.9 g/dl (32.0-36.0); MEAN PLT VOLUME 8.2 fl (7.5-11.1); NEUT % 71.5 % (42.8-82.8); PLATELET COUNT 354 K/MM3 (134-434); RBC 3.35 M/mm3 (3.60-5.2); RDW 14.6 % (11.6-15.6); WHITE BLOOD COUNT 8.7 K/mm3 (4.0-10.0)
[2020-08-14 00:40] LABS: EPI CELLS 26 /uL (0-25.1); HYALINE CASTS 2 /uL (0-3.1); URINE APPEARANCE CLEAR; URINE BACTERIA 914 /uL (0-1359); URINE BILIRUBIN NEGATIVE (NEGATIVE); URINE COLOR YELLOW; URINE GLUCOSE (UA) NEGATIVE (NEGATIVE); URINE KETONE NEGATIVE (NEGATIVE); URINE LEUK ESTERASE 1+ (NEGATIVE); URINE NITRITE NEGATIVE (NEGATIVE); URINE PROTEIN TRACE (NEGATIVE); URINE RBC 21 /uL (0-23.9); URINE WBC 45 /uL (0-25.8)
[2020-08-14 00:47] LABS: INR 0.91 (0.83-1.09); PROTHROMBIN TIME (PATIENT) 10.7 SEC (9.7-13.0)
[2020-08-14 00:50] LABS: ACTIVATED PTT 32.1 SECONDS (25.2-36.5)
[2020-08-14 00:56] LABS: ALBUMIN 3.6 g/dl (3.4-5.0); BILIRUBIN,TOTAL 0.7 mg/dL (0.2-1); BLOOD UREA NITROGEN 20.4 mg/dL (7-18); CALCIUM 8.9 mg/dL (8.5-10.1); CREATININE 1.2 mg/dL (0.55-1.3); POTASSIUM 3.8 mmol/L (3.5-5.1); TOT PROT 7.2 g/dl (6.4-8.2)
[2020-08-14] MEDS ORDERED: CEPHALEXIN MONOHYDRATE 500 MG CAPSULE (UD) PO ONE (01:07)
[2020-08-14] MEDS ORDERED: CEPHALEXIN MONOHYDRATE 500 MG CAPSULE (UD) ONE (01:11)
[2020-08-14] MEDS ORDERED: DEXTROSE 5%-NORMAL SALINE 1,000 ML IV SCH (01:45)
--- OUTSIDE RECORDS SUMMARY | 2020-08-14 02:18 | XMS ---
:1960 [facility] Organization [facility] Team Providers Name Role Phone MARILUZ TRONCOSO Unavailable Unavailable RIYA YATES Unavailable Unavailable MELANIE [...] is protected by Article 27-F of the [place] Public Health law. If you continue you may haveaccess to information: Regarding HIV / AIDS; Provided by facilities licensed or operated by the [facility] Office of Mental Health; or Provided by the [facility] Office for People With Developmental Disabilities. If such information is present, then the following [facility] mandated warning applies: This information has [...] law may result in a fine or senior living sentence or both. A general authorization for the release of medical or other information is NOT sufficient authorization for further disclosure. Allergies and Adverse Reactions Type Description Substance Reaction Status Data Source(s ) Drug allergy No Known Drug No Known Drug [facility] Allergies [facility] No Known No Known Allergies No Known [facility]3 ( [facility] Allergies Allergies [facility]) Encounters Encounter Providers Location Date Indications Data Source(s ) Inpatient Att[facility]: [facility] RIYA YATES - Jessica BhattiReferrer: 07/31/2020 RIYA YATES 03:43:00 PM ED N28. Outpatient Attender: MILAN 07/23/2020 06:00:[address] [facility] RIYA BhattiAdmitter: [facility] Health C are RIYA YATESReferrer: RIYA YATES [id number] Outpatient Attender: ABA 07/23/2020 05:49:[address] [facility] NATDONELLAttender: TRISTIN YATES [facility] RIYA BhattiAdmitter: Corporat ion RIYA YATESReferrer: RIYA YATES [id number] Outpatient Attender: JONH 07/20/2020 11:31:00 N28.89 [facility] HUMAYUNReferrer: [facility] N[facility] Outpatient Attender: SHOAIB 07/20/2020 06:00:[address] [facility] SWATHI AgarwalYvetteAdmitter: AM [facility] SWATHI CRAMER tipeace Z03.818 Outpatient Attender: DANIEL 07/01/2020 01:00:[address] [facility] AIDEN PhilipAdmitter: [facility] AIDEN SANCHEZ Outpatient Attender: EMILY, 06/22/2020 06:00:[address] [facility] REENAAdmitter: EMILY [facility] ARRON [place] Outpatient Attender: ANA CRISTINA 06/11/2020 N28.89 CPT [facility] MELANIE B.Admitter: 12:04:00 PM EDT [id number] [facility] MELANIE DE LA PAZReferrer: MELANIE DE LA PAZ N28.89 CPT [id number] Outpatient Attender: JOSHUA 06/11/2020 06:00:[address] [facility] TANYAAdmitter: JOSHUA [facility] TANYAReferrer: JIGAR MURPHY [facility] N28.89 Outpatient Attender: ANA CRISTINA 06/10/2020 [facility] MELANIE BYvetteAttender: 11:55:00 AM T [facility] AIDEN SANCHEZAdmitter: MELANIE DE LA PAZ Outpatient [place] [facility] 07/28/2019 eCW3 ([facility] A28 12:00:00 AM EDT - [facility]) 07/28/2019 12:00:00 AM EDT Immunizations Vaccine Date Status Description Data Source(s) New in 2011. IIV4 07/28/2019 11:43:00 completed eC W3 ([facility]) Medications Medication Brand Start Product Dose Route Administrative Pharmacy [facility] Indications Reaction Description Data Name Date Form Instructions Instructions Source(s) glimepiride Glimep W estcheste 4 MG Oral iride 2019 [facility] Tablet [4 mg 12:00: Health Glimepiride Tablet 00 AM Care [4 mg ]: 1 EDT Corporatio Tablet]: 1 Tablet n Tablet Oral Oral DAILY DAILY Metformin Metfor [place]aro tcheste hydrochlori min 2019 ed [place] de 500 MG [500 12:00: Health Oral [...] 00 AM Health EDT Care) Blood Blood Blood eCW3 Glucose Glucos 2018 Glucose Test (H udson Test - e Test 12:00: - [place] - 00 AM Health EDT Care) Metformin Metfor 1.0 active Metformin e CW3 hydrochlori min {tabl HCl 1000 MG (Tracy de 1000 MG HCl et_wi [place] Oral Tablet 1000 th_sd Health Metformin MG als} Care) HCl 1000 MG Insurance Providers Payer name Policy type Policy ID Covered Covered constitution party's Policy P concha / Coverage constitution party ID relationship to [facility] type [id number] SP [id number] SOLUTIONS MEDICARE [id number] HEALTH [id number] SP [id number] SOLUTIONS SELF PAY SP INSURANCE [facility] MEDICARE [id number] Problems, Conditions, and Diagnoses Code Display Name Description Problem Type Effective Data Sour ce(s) Dates 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 [place] use of oral USE OF ORAL 03:43:00 PM [facility] hypoglycemic drugs HYPOGLYCEMIC DRUGS EDT Care [facility] R74.0 Nonspecific NONSPEC ELEV OF Diagnosis 07/31/2020 [facility] elevation of levels LEVELS OF TRANSAMNS 03:43:0 0 PM [facility] transaminase and and LACTIC ACID EDT Care lactic acid DEHYDRGNSE [facility] dehydrogenase [LDH] K80.20 Calculus of CALCULUS OF Diagnosis 07/31/2020 [place] gallbladder without GALLBLADDER W/O 03:43:00 PM [facility] cholecystitis CHOLECYSTITIS W/O EDT Care without obstruction OBSTRUCTION [place] oration G47.33 Obstructive sleep OBSTRUCTIVE SLEEP Diagnosis 07/31/2020 [place] apnea (adult) APNEA (ADULT) 03:43:00 PM [facility] (pediatric) (PEDIATRIC) EDT Care Corporation E11.65 Type 2 diabetes TYPE 2 DIABETES Diagnosis 07/31/2020 [place] mellitus with MELLITUS WITH 03:43:00 PM [facility] hyperglycemia HYPERGLYCEMIA EDT Care Corporation Z20.828 Contact with and CONTACT W AND Diagnosis 07/31/2020 [facility] chandler (suspected) EXPOSURE TO OTH 03:43:00 PM [facility] exposure to other VIRAL COMMUNICABLE EDT Care viral communicable DISEASES Corpor ation diseases E83.51 Hypocalcemia HYPOCALCEMIA Diagnosis 07/31/2020 [facility] r 03:43:00 PM [facility] EDT Care Corporation E11.40 Type 2 diabetes TYPE 2 DIABETES Diagnosis 07/31/2020 [place] mellitus with MELLITUS WITH 03:43:00 PM [facility] diabetic DIABETIC EDT Care neuropathy, NEUROPATHY, UNSP Corpora tion unspecified N17.9 Acute kidney ACUTE KIDNEY Diagnosis 07/31/2020 [facility] r failure, FAILURE, 03:43:00 PM [facility] unspecified UNSPECIFIED EDT Care [facility] D62 Acute ACUTE Diagnosis 07/31/2020 [place] posthemorrhagic POSTHEMORRHAGIC 03:43:00 PM [employer] anemia ANEMIA EDT Care [facility] C64.1 Malignant neoplasm MALIGNANT NEOPLASM Diagnosis 0 [place] of right kidney, OF RIGHT KIDNEY, 01:58:00 PM C [employer] except renal pelvis EXCEPT RENAL PELVIS EDT [facility] N28.89 Other specified OTHER SPECIFIED Diagnosis 07/20/2020 [place] disorders of kidney DISORDERS OF KIDNEY 11:31:0 0 AM [facility] and ureter AND URETER EDT Care [employer] Z03.818 Encounter for ENCNTR FOR OBS FOR Diagnosis 07/20/2020 [place] observation for SUSP EXPSR TO OTH 06:00:00 AM C [employer] suspected exposure BIOLG AGENTS RULED EDT Care to other biological OUT Corpo ration agents ruled out E11.9 Type 2 diabetes TYPE 2 DIABETES Diagnosis 07/01/2020 [place] mellitus without MELLITUS WITHOUT 01:00:00 PM C ounty [facility] complications COMPLICATIONS EDT Care [employer] N28.9 Disorder of kidney DISORDER OF KIDNEY Diagnosis 0 [place] and ureter, AND URETER, 01:00:00 PM [facility] unspecified UNSPECIFIED EDT Care [employer] Z01.818 Encounter for other ENCOUNTER FOR OTHER Diagnosis 020 [place] preprocedural PREPROCEDURAL 01:00:00 PM [facility] examination EXAMINATION EDT [employer] K80.80 Other OTHER Diagnosis 06/22/2020 [place] cholelithiasis CHOLELITHIASIS 06:00:00 AM Count y Health without obstruction WITHOUT OBSTRUCTION EDT Care [employer] N30.90 Cystitis, CYSTITIS, Diagnosis 06/22/2020 [place] unspecified without UNSPECIFIED WITHOUT 06:00:0 0 AM [facility] hematuria HEMATURIA EDT Care [employer] Results ID Date Data Source [id number] 07/31/2020 07:25:00 AM EDT [facility] [id number] Corporation Name Value Range Interpretation Description Data Sup porting Code Source(s) Document(s ) Erythrocytes 3.42 m/mm3 3.90-5 <td> 07/31/2020 [facility] r [#/volume] in .20 07:25</td><td> [facility] Blood m/mm3 RBC Health Care </td><td><[employer] raph styleCode="Bold "> 3.42 L </paragraph>
(3.90-5.20) m/mm3 </td> Leukocytes 8.3 k/mm3 4.8-10 <td> 07/31/2020 [place] [#/volume] in .8 07:25</td><td> [facility] Blood by k/mm3 WBC </td><td> im3D Care Automated [employer] count 8.3
(4.8-10.8) k/mm3 </td> Erythrocyte 90.6 fL 81.0-9 <td> 07/31/2020 [place] mean 9.0 fL 07:25</td><td> [facility] corpuscular MCV </td><td> im3[employer] Care [employer] [Entitic 90.6 volume] by Automated
count (81.0-99.0) fL </td> Hemoglobin 10.0 g/dL 12.0-1 <td> 07/31/2020 [place] [Mass/volume] 6.0 07:25</td><td> County in Blood g/dL HGB Health Care </td><td><[employer] raph styleCode="Bold "> 10.0 L </paragraph>
(12.0-16.0) g/dL </td> Hematocrit 31.0 % 37.0-4 <td> 07/31/2020 [place] [Volume 7.0 % 07:25</td><td> County Fraction] of HCT Health Care Blood by </td><td><[employer] Automated raph count styleCode="Bold "> 31.0 L </paragraph>
(37.0-47.0) % </td> Erythrocyte 29.2 pg 27.0-3 <td> 07/31/2020 [place] mean 1.5 pg 07:25</td><td> [facility] corpuscular MCH </td><td> Health Care hemoglobin Corporation [Entitic mass] 29.2 by Automated count
(27.0-31.5) pg </td> Erythrocyte 32.3 % 32.0-3 <td> 07/31/2020 [place] mean 6.0 % 07:25</td><td> [facility] corpuscular MCHC </td><td> Health Care hemoglobin Corporation concentration 32.3 [Mass/volume] in Blood from
Fetus by (32.0-36.0) % Automated </td> count Erythrocyte 13.5 % 11.5-1 <td> 07/31/2020 [place] distribution 4.5 % 07:25</td><td> County width [Entitic RDW </td><td> Health Car e volume] by Corporation Automated 13.5 count
(11.5-14.5) % </td> Lymphocytes 24.3 % 17.0-5 <td> 07/28/2020 [place] [#/volume] in 0.0 % 13:25</td><td> County Blood by Lymphocytes Health Care Automated </td><td> Corporation count 24.3
(17.0-50.0) % </td> Platelet mean 10.3 fL 9.8-12 <td> 07/31/2020 [facility] r volume .8 fL 07:25</td><td> [facility] [Entitic MPV </td><td> Health Care volume] in Corporation Blood by 10.3 Automated count
(9.8-12.8) fL </td> Platelets 256 k/mm3 160-41 <td> 07/31/2020 [place] [#/volume] in 0 07:25</td><td> [facility] Blood by k/mm3 Platelet Count Health Care Automated </td><td> [employer] count 256
(160-410) k/mm3 </td> Basophils+Eosi 3.3 % 0.0-5. <td> 07/28/2020 [facility] er nophils+Monocy 0 % 13:25</td><td> [facility] sandra [#/volume] Eosinophils Health Care in Blood by </td><td> [employer] Automated count 3.3
(0.0-5.0) % </td> Immature 0.5 % 0.0-0. <td> 07/28/2020 [place] granulocytes/1 5 % 13:25</td><td> [facility] 00 leukocytes IG% </td><td> Health Care in Blood by [employer] Automated 0.5 count
(0.0-0.5) %
The IG fraction represents metamyelocytes, myelocytes and/or
promyelocytes and is only reported as part of the automated
differential when found at a percentage of less than 6.
If higher than 6%, a manual differential will be performed.

(0.0-0.5) % </td> Basophils 0.2 % 0.0-2. <td> 07/28/2020 [place] [#/volume] in 0 % 13:25</td><td> [facility] Blood by Basophils Health Care Automated </td><td> [employer] count 0.2
(0.0-2.0) % </td> Monocytes/Leuk 10.5 % 0.0-11 <td> 07/28/2020 [facility] er ocytes [Pure .0 % 13:25</td><td> County number Monocytes. Health Care fraction] in </td><td> [facility] Blood by Automated 10.5 count
(0.0-11.0) % </td> Basophilic Occasional <td> 07/24/2020 [place] stippling 21:30</td><td> County [Presence] in Basophilic Health Care Blood by Light Stippling [facility] microscopy </td><td> Occasional
</td> Neutrophils 61.2 % 40.0-7 <td> 07/28/2020 [place] [#] in Body 6.0 % 13:25</td><td> [facility] fluid by Neutrophils [facility] Care Manual count </td><td> [employer] 61.2
(40.0-76.0) % </td> Glucose 156 mg/dL 70-105 <td> 07/31/2020 [place] [Mass/volume] mg/dL 07:25</td><td> [facility] in Blood Glucose-Serum Health Care </td><td><juanpablo [facility] raph styleCode="Bold "> 156 H </paragraph>
(70-105) mg/dL </td> Anisocytosis Slight <td> 07/27/2020 [place] [Presence] in 14:10</td><td> [facility] Blood by Light Anisocytosis Health Care microscopy </td><td> [employer] Slight
</td> Sodium 138 mEq/L 135-14 <td> 07/31/2020 [place] [Moles/volume] 5 07:25</td><td> County in Serum or mEq/L Sodium-Serum Health Care Plasma </td><td> [employer] 138
(135-145) mEq/L </td> Chloride 100 mEq/L 98-107 <td> 07/31/2020 [place] [Moles/volume] mEq/L 07:25</td><td> County in Serum or Chloride Health Care Plasma </td><td> [employer] 100
(98-107) mEq/L </td> Carbon 26 mEq/L 22-30 <td> 07/31/2020 [place] dioxide, total mEq/L 07:25</td><td> County [Moles/volume] CO2 </td><td> Health Car e in Serum or Corporation Plasma 26
(22-30) mEq/L </td> Urea nitrogen 23 mg/dL 6-22 <td> 07/31/2020 [facility] r [Mass/volume] mg/dL 07:25</td><td> [place] in Blood BUN Health Care </td><td><juanpablo Corporation raph styleCode="Bold "> 23 H </paragraph>
(6-22) mg/dL </td> Potassium 4.2 mEq/L 3.5-5. <td> 07/31/2020 [place] [Moles/volume] 1 07:25</td><td> [place] in Serum or mEq/L Potassium-Serum Health Care Plasma </td><td> [employer] 4.2
(3.5-5.1) mEq/L </td> Bilirubin.tota 0.9 mg/dL 0.2-1. <td> 07/28/2020 [facility] er l 3 01:14</td><td> County [Mass/volume] mg/dL Bilirubin - Health Care in Blood Total Corporation </td><td> 0.9
(0.2-1.3) mg/dL </td> Creatinine 0.94 mg/dL 0.57-1 <td> 07/31/2020 [place] [Moles/volume] .11 07:25</td><td> [place] in Serum or mg/dL Creatinine. Health Care Plasma </td><td> [employer] 0.94
(0.57-1.11) mg/dL </td> Alanine 20 U/L 6-55 <td> 07/28/2020 [place] aminotransfera U/L 01:14</td><td> County se [Enzymatic ALT (SGPT) Health Care activity/volum </td><td> Corporation e] in Serum or Plasma 20
(6-55) U/L </td> Aspartate 19 U/L 4-35 <td> 07/28/2020 [place] aminotransfera U/L 01:14</td><td> [facility] se [Enzymatic AST (SGOT) Health Care activity/volum </td><td> Corporation e] in Serum or Plasma 19
(4-35) U/L </td> Anion gap in 12 mEq/L 7-13 <td> 07/31/2020 [place] Serum or mEq/L 07:25</td><td> [facility] Plasma Anion Gap Health Care </td><td> [employer] 12
(7-13) mEq/L </td> Proteins - 5.1 g/dL 6.4-8. <td> 07/28/2020 [place] Total 3 g/dL 01:14</td><td> [facility] Proteins - [facility] Care Total [employer] </td><td><Qumu raph styleCode="Bold "> 5.1 L </paragraph>
(6.4-8.3) g/dL </td> Calcium 8.5 mg/dL 8.6-10 <td> 07/31/2020 [place] [Mass/volume] .2 07:25</td><td> [facility] in Blood mg/dL Calcium Health Care </td><td><[employer] raph styleCode="Bold "> 8.5 L </paragraph>
(8.6-10.2) mg/dL </td> Albumin 2.7 g/dL 3.4-4. <td> 07/28/2020 [place] [Mass/volume] 8 g/dL 01:14</td><td> [facility] in Serum or Albumin Health Care Plasma </td><td><[employer] raph styleCode="Bold "> 2.7 L </paragraph>
(3.4-4.8) g/dL </td> Hemolysis No <td> 07/31/2020 [place] index of Serum Hemolysis 07:25</td><td> County or Plasma Hemolysis Index Health Care </td><td> [employer] No Hemolysis
</td> Phosphate 4.1 mg/dL 2.3-4. <td> 07/31/2020 [place] [Mass/volume] 7 07:25</td><td> County in Serum or mg/dL Inorganic Health Care Plasma Phosphorus [facility] </td><td> 4.1
(2.3-4.7) mg/dL </td> Globulin 2.4 gm/dL 2.9-4. <td> 07/28/2020 [place] [Mass/volume] 0 01:14</td><td> [facility] in Serum gm/dL Globulin Health Care </td><td><juanpablo [facility] raph styleCode="Bold "> 2.4 L </paragraph>
(2.9-4.0) gm/dL </td> Icteric index Non Icteric <td> 07/31/2020 [facility] of Serum or 07:25</td><td> [facility] Plasma Icteric Index [facility] </td><td> [facility] Non Icteric
</td> Lipemic index No Lipemia <td> 07/31/2020 [facility] er of Serum or 07:25</td><td> [facility] Plasma Lipemia Index [facility] </td><td> [facility] No Lipemia
</td> aPTT panel - 27.4 secs 25.0-3 <td> 07/31/2020 [place] Platelet poor 6.5 07:25</td><td> [facility] plasma secs Partial [facility] Thromboplastin [facility] Time </td><td> 27.4
(25.0-36.5) secs
PLEASE NOTE: New reference range in effect May 31, 2020.

(25.0-36.5) secs </td> Magnesium 1.7 mg/dL 1.6-2. <td> 07/31/2020 [place] [Mass/volume] 6 07:25</td><td> [place] in Serum or mg/dL Magnesium Level Health Care Plasma </td><td> [facility] 1.7
(1.6-2.6) mg/dL </td> Prothrombin 11.0 secs 9.4-12 <td> 07/31/2020 [place] time (PT) .5 07:25</td><td> [facility] secs Prothrombin Health Care Time. [facility] </td><td> 11.0
(9.4-12.5) secs </td> Fibrinogen 316 mg/dL 200-40 <td> 07/24/2020 [place] [Mass/volume] 0 17:00</td><td> County in Platelet mg/dL Fibrinogen Health Care poor plasma by Level [employer] Coagulation </td><td> assay 316
(200-400) mg/dL
PLEASE NOTE: New reference range in effect May 31, 2020.

(200-400) mg/dL </td> Glucose 157 mg/dL 70-105 <td> 07/31/2020 [place] [Mass/volume] mg/dL 12:07</td><td> County in Capillary Glucose - Health Care blood by Finger Stick [employer] Glucometer </td><td><juanpablo raph styleCode="Bold "> 157 H </paragraph>
(70-105) mg/dL
RN notified

(70-105) mg/dL </td> ID Date Data Source [id number] 07/24/2020 12:00:00 AM EDT [facility] [id number] Corporation Name Value Range Interpretation Description Data Sup porting Code Source(s) Document(s ) Operative Operative <td> 07/24/2020 [place] Report Report </td><td> [facility] NAME: Operative Report Health Care DEDE </td><td>
<br/ Corporation NIKOS >

MR#: Operative Report [id number] ADMIT DATE:

07/23/2020 NAME: ADELINE NORRIS DATE:
MR#: 07/23/2020 [id number] DISCHARGE
ADMIT DATE: DATE: 07/23/2020 SURGEON:
BILLING SURGERY DATE: NUMBER: 07/23/2020 [id number]
DATE OF DISCHARGE DATE: PROCEDURE:
07/23/2020 SURGEON:
BILLING PREOPERATIVE NUMBER: [id number] DIAGNOSIS: Right renal

mass. DATE OF PROCEDURE: POSTOPERATIV 07/23/2020 E DIAGNOSIS:

Right renal PREOPERATIVE mass. DIAGNOSIS: Right OPERATIVE renal mass. INTERVENTION

: Robotic POSTOPERATIVE right DIAGNOSIS: Right partial renal mass. nephrectomy

with OPERATIVE intraoperati INTERVENTION: ve Robotic right ultrasound partial for tumor nephrectomy with localization
. intraoperative SURGEON: ultrasound for annie Quintana M.D. localization. CO-SURGEON:

Riya SURGEON: Aba Mendoza M.D. M.D.

STAPLING MACHINE OPERATOR: CO-SURGEON: Mis Omalley M.D.

STAPLING MACHINE OPERATOR: ANESTHESIA: General Mis Walker anesthetic.

ANESTHESIA: COMPLICATION [...] normal

<br anatomical />

position. DICT: Grover Quintana.Lucía the
DD: pressure 07/23/20 07 46 PM down to 5
mmHg and there was no 02:23:06/HN evidence of
any significant

bleeding from the renorrhaphy === END OF bed. We DOCUMENT / CHANGE then LOG FOLLOWS increased the pressure to 12mmHg

and undocked the robot. We placed a Elec. Signed By Andrea-Prat
t drain in the retroperiton MARILUZ TRONCOSO eal space #[id number] and secured
it externally on with a [...] FOLLOWS ===== Elec. Signed By MARILUZ TRONCOSO #[id number] on 07/29/2020 17:06 ET ID Date Data Source [id number] 07/23/2020 10:25:00 AM EDT [facility] [id number] Corporation Name Value Range Interpretation Description Data Sup porting Code Source(s) Document(s ) ABO O POS <td> 07/23/2020 [place] Verification 10:25</td><td> [facility] </td><td> O POS
</td> ID Date Data Source [id number] 07/21/2020 12:00:00 AM EDT [facility] Name Value Range Interpretation Code Description Data Peyton rce(s) Supporting Document(s ) SARS-COV-2 [place] RNA RT-[facility] This lab was ordered by [facility] and reported by [facility]. ID Date Data Source [id number] 05/05/2020 11:10:00 AM EDT [facility] Name Value Range Interpretation Description Data Sup porting Code Source(s) Document(s ) SARS [facility] CORONAVIRUS 2 RNA This lab was ordered by [facility] and reported by [facility]. Procedure Social History Code Duration Value Status Description Data Source(s ) Smoking 07/28/2019 12:00:00 Never Smoker completed Never Smoker e CW3 ([facility]) Smoking Never smoker completed Never smoker [facility] Never Smoker completed Never Smoker eCW3 ([facility]) Vital Signs ID Date Data Source [...] 18.0000 {} Normal (applies to 18.0000 {} [place] rate Set non-numeric results) Coun ty Health Care Corporati on Heart rate 96.0000 {} Normal (applies to 96.0000 {} [facility] michele non-numeric results) Coun ty [facility] Care Corporati on Body temperature 98.0000 {} Normal (applies to 98.0000 {} [place] non-numeric results) Coun ty Health Care Corporati on wt - obtain Normal (applies to {} [facility] chandler non-numeric results) Coun ty Health Care Corporati on weight - kg 64.5450 {} Normal (applies to 64.5450 {} [facility] chandler non-numeric results) Coun ty Health Care Corporati on Diastolic blood 79 mm[Hg] 79 mm[Hg] eCW3 ([facility] pressure [facility]) Systolic blood 141 mm[Hg] 141 mm[Hg] [facility]CW3 [facility]) Heart rate 20 /min 20 /min eCW3 ([facility]) Body mass index 24.06 kg/m2 24.06 kg/m2 eCW3 ([facility] (BMI) [Ratio] [facility]) Body weight 138 [lb_av] 138 [lb_av] eCW3 ([facility]) Body height 63.5 [in_i] 63.5 [in_i] eCW3 ([facility]) Patient Treatment Plan of Care Planned Activity Planned Date Details Description Data Source (s) Isopropyl Alcohol 0.7 07/28/2019 12:00:00 eCW3 ([facility] ML/ML Medicated Pad [facility]) Lancets - 07/28/2019 12:00:00 eCW3 ([facility]) Gauze Pads 2"X2" 07/28/2019 12:00:00 eCW3 ([facility]) Blood Glucose Test - 07/28/2019 12:00:00 eCW3 ([facility]) Metformin hydrochloride eCW3 ([facility] 1000 MG Oral Tablet [facility])
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
--- NOTE | 2020-08-14 03:23 | PN ---
Teaching Attending Note Name of Resident: Maddy Johnson ATTENDING PHYSICIAN STATEMENT I saw and evaluated the patient. I reviewed the resident's note and discussed the case with the resident. I agree with the resident's findings and plan as documented. SUBJECTIVE: 80 year old female with PMHx of DM, renal cancer s/p nephrectomy presenting to the ED w/ sx hypoglycemia. 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
[2020-08-14] MEDS ORDERED: ONDANSETRON 4 MG/2 ML VIAL IVPUSH ONE (03:40)
[2020-08-14] MEDS ORDERED: FLU VACCINE (FLULAVAL) PF 60 MCG/0.5 ML SYRINGE 2020-2021 IM ONE (03:41)
[2020-08-14] MEDS ORDERED: PNEUMOC 13-VAL CONJ-DIP CRM/PF 0.5 ML DISP.SYRIN IM ONE (03:53)
[2020-08-14 03:59] VITALS: BMI 23.3
[2020-08-14] MEDS: INSULIN SLIDING SCALE (NOVOLOG) 1 VIAL SQ SCH ×2 (06:09→12:02)
[2020-08-14 06:47] LABS: HEMATOCRIT 24.7 % (32.4-45.2); HEMOGLOBIN 8.3 GM/dL (10.7-15.3); MCH 28.8 pg (25.7-33.7); MCHC 33.8 g/dl (32.0-36.0); MEAN CELL VOLUME 85.3 fl (80-96); MEAN PLT VOLUME 8.7 fl (7.5-11.1); PLATELET COUNT 307 K/MM3 (134-434); RBC 2.89 M/mm3 (3.60-5.2); WHITE BLOOD COUNT 8.2 K/mm3 (4.0-10.0)
[2020-08-14 07:04] LABS: BLOOD UREA NITROGEN 19.2 mg/dL (7-18); CALCIUM 8.1 mg/dL (8.5-10.1); CREATININE 1.1 mg/dL (0.55-1.3); MAGNESIUM 1.7 mg/dL (1.8-2.4); PHOSPHOROUS 3.3 mg/dL (2.5-4.9); POTASSIUM 4.7 mmol/L (3.5-5.1)
[2020-08-14] MEDS ORDERED: ENOXAPARIN NA (PORCINE) 40 MG/0.4 ML DISP.SYRIN SQ SCH (10:00)
--- NOTE | 2020-08-14 15:27 | PN ---
Teaching Attending Note Name of Resident: Derrick Reid ATTENDING PHYSICIAN STATEMENT I saw and evaluated the patient. I reviewed the resident's note and discussed the case with the resident. I agree with the resident's findings and plan as documented. SUBJECTIVE: seen in am , she denies any pain, fever or chills, no change in po intake routine . on jul she had a partial R nephrectomy due to RCC . now feels fine and at her base line denies abd pain, dysuria m, or frequency OBJECTIVE: Nad, awake, pleasant and cooperative,. nl speech. CV: RRR, 2/6 SM at base . Lungs: CTAB Abd: soft, NT, ND , NL BS . laparoscopic wurgical wounds with steristrips . no surrounding erythema, or discharge . No tenderness Ext : b/l ankle edema , R > L . no edema ion legs, no erythema ASSESSMENT AND PLAN: 60 y/o lady with h/o Dm , and recent diagnosis of R RCC s/p partial R nephrectomy in 08/01 who presented with recurrent episodes of hypoglycemia 1- Hypoglycemia: likely due to sulphonyluria in setting of slight decrease in GFR after partial nephrectomy - cont to hold metformin and glemiperide - dc D5 NS - monitor sugar till evening - A1c 4.4 - will not resume po meds at dc - she will make an appointment with her clinic in 2-3 days after dc, and also she will call with BMG log . - she was advised to check her sugar ACHS - refer to endocrine after dc 2- H/o recent partial R nephrectomy due to RCC. - surgical incision sites with no infection - f/u as out pt 3- asymptomatic pyuria : no need for Abx regardless of urine cx dispo : might send home this evening if sugar continues to be > 100
[2020-08-14 16:00] VITALS: BP 139/74; PULSE 91; TEMP 98.9
--- NOTE | 2020-08-14 16:24 | DS ---
Physical Exam: SUBJECTIVE: Patient seen and examined. Pt. states she had a partial Nephrectomy with ~50% of her R. Kidney removed. Pt. denies ever having a PET Scan. Pt. states she has one planned in the coming weeks. Pt. states she did not have any RT or chemo prior to or after her surgery. Pt. endorse sporadic hypoglycemic symptoms prior to discovering her Renal CA. Pt. states that a few weeks ago her A1c was ~7%. OBJECTIVE: Vital Signs Period Temp Pulse Resp BP Sys/Garcia Pulse Ox Last 24 Hr 97.7 F-99 F 91-103 18-20 101-153/52-82 96-99 PHYSICAL EXAM GENERAL: The patient is awake, alert, and fully oriented, in no acute distress. HEAD: Normal with no signs of trauma. EYES: Sclera anicteric, conjunctiva clear. ENT: Ears normal, nares patent, oropharynx clear without exudates, Moist mucous membranes. NECK: Trachea midline, full range of motion, supple. LUNGS: Breath sounds equal, clear to auscultation bilaterally, no wheezes, no crackles, no accessory muscle use. HEART: Regular rate and rhythm, S1, S2 without murmur ABDOMEN: Soft, nontender, nondistended, normoactive bowel sounds, no guarding, no rebound EXTREMITIES: 2+ dorsal pedal pulses, warm, well-perfused, no calf tenderness, RLE ankle edema NEUROLOGICAL: Moves all extremities. Normal speech, gait not observed. PSYCH: Normal mood, normal affect. SKIN: Warm, dry, normal turgor, many tattoos LABS Laboratory Results - last 24 hr 08/13/20 08/14/20 08/14/20 23:41 00:10 00:10 WBC 8.7 RBC 3.35 L Hgb 9.8 L Hct 28.8 L MCV 86.0 MCH 29.2 MCHC 33.9 RDW 14.6 D Plt Count 354 D MPV 8.2 Absolute Neuts (auto) 6.2 Neutrophils % 71.5 Lymphocytes % 18.2 D Monocytes % 8.0 Eosinophils % 2.0 D Basophils % 0.3 Nucleated RBC % 0 PT with INR INR PTT (Actin FS) Sodium Potassium Chloride Carbon Dioxide Anion Gap BUN Creatinine Est GFR (CKD-EPI)AfAm Est GFR (CKD-EPI)NonAf POC Glucometer 89 Random Glucose Hemoglobin A1c % Calcium Phosphorus Magnesium Total Bilirubin AST ALT Alkaline Phosphatase Total Protein Albumin Urine Color Yellow Urine Appearance Clear Urine pH 5.0 Ur Specific [place] 1.015 Urine Protein Trace Urine Glucose (UA) Negative Urine Ketones Negative Urine Blood Negative Urine Nitrite Negative Urine Bilirubin Negative Urine Urobilinogen 1.0 Ur Leukocyte Esterase 1+ H Urine WBC (Auto) 45 Urine RBC (Auto) 21 Urine Casts (Auto) 2 U Epithel Cells (Auto) 26 Urine Bacteria (Auto) 914 08/14/20 08/14/20 08/14/20 00:10 00:10 01:05 WBC RBC Hgb Hct MCV MCH MCHC RDW Plt Count MPV Absolute Neuts (auto) Neutrophils % Lymphocytes % Monocytes % Eosinophils % Basophils % Nucleated RBC % PT with INR 10.70 INR 0.91 PTT (Actin FS) 32.1 Sodium 141 Potassium 3.8 Chloride 105 Carbon Dioxide 29 Anion Gap 7 L BUN 20.4 H Creatinine 1.2 Est GFR (CKD-EPI)AfAm 57.29 Est GFR (CKD-EPI)NonAf 49.43 POC Glucometer 84 Random Glucose 69 L Hemoglobin A1c % Calcium 8.9 Phosphorus Magnesium Total Bilirubin 0.7 AST 28 ALT 29 Alkaline Phosphatase 167 H Total Protein 7.2 Albumin 3.6 Urine Color Urine Appearance Urine pH Ur Specific [place] Urine Protein Urine Glucose (UA) Urine Ketones Urine Blood Urine Nitrite Urine Bilirubin Urine Urobilinogen Ur Leukocyte Esterase Urine WBC (Auto) Urine RBC (Auto) Urine Casts (Auto) U Epithel Cells (Auto) Urine Bacteria (Auto) 08/14/20 08/14/20 08/14/20 03:34 05:28 05:28 WBC 8.2 RBC 2.89 L Hgb 8.3 L Hct 24.7 L MCV 85.3 MCH 28.8 MCHC 33.8 RDW 14.0 Plt Count 307 MPV 8.7 Absolute Neuts (auto) Neutrophils % Lymphocytes % Monocytes % Eosinophils % Basophils % Nucleated RBC % PT with INR INR PTT (Actin FS) Sodium 141 Potassium 4.7 Chloride 109 H Carbon Dioxide 24 Anion Gap 8 BUN 19.2 H Creatinine 1.1 Est GFR (CKD-EPI)AfAm 63.64 Est GFR (CKD-EPI)NonAf 54.91 POC Glucometer 116 Random Glucose 146 H Hemoglobin A1c % Calcium 8.1 L Phosphorus 3.3 Magnesium 1.7 L Total Bilirubin AST ALT Alkaline Phosphatase Total Protein Albumin Urine Color Urine Appearance Urine pH Ur Specific [place] Urine Protein Urine Glucose (UA) Urine Ketones Urine Blood Urine Nitrite Urine Bilirubin Urine Urobilinogen Ur Leukocyte Esterase Urine WBC (Auto) Urine RBC (Auto) Urine Casts (Auto) U Epithel Cells (Auto) Urine Bacteria (Auto) 08/14/20 08/14/20 08/14/20 05:28 06:07 11:34 WBC RBC Hgb Hct MCV MCH MCHC RDW Plt Count MPV Absolute Neuts (auto) Neutrophils % Lymphocytes % Monocytes % Eosinophils % Basophils % Nucleated RBC % PT with INR INR PTT (Actin FS) Sodium Potassium Chloride Carbon Dioxide Anion Gap BUN Creatinine Est GFR (CKD-EPI)AfAm Est GFR (CKD-EPI)NonAf POC Glucometer 149 183 Random Glucose Hemoglobin A1c % 4.4 Calcium Phosphorus Magnesium Total Bilirubin AST ALT Alkaline Phosphatase Total Protein Albumin Urine Color Urine Appearance Urine pH Ur Specific [place] Urine Protein Urine Glucose (UA) Urine Ketones Urine Blood Urine Nitrite Urine Bilirubin Urine Urobilinogen Ur Leukocyte Esterase Urine WBC (Auto) Urine RBC (Auto) Urine Casts (Auto) U Epithel Cells (Auto) Urine Bacteria (Auto) 08/14/20 08/14/20 14:32 16:15 WBC RBC Hgb Hct MCV MCH MCHC RDW Plt Count MPV Absolute Neuts (auto) Neutrophils % Lymphocytes % Monocytes % Eosinophils % Basophils % Nucleated RBC % PT with INR INR PTT (Actin FS) Sodium Potassium Chloride Carbon Dioxide Anion Gap BUN Creatinine Est GFR (CKD-EPI)AfAm Est GFR (CKD-EPI)NonAf POC Glucometer 223 177 Random Glucose Hemoglobin A1c % Calcium Phosphorus Magnesium Total Bilirubin AST ALT Alkaline Phosphatase Total Protein Albumin Urine Color Urine Appearance Urine pH Ur Specific [place] Urine Protein Urine Glucose (UA) Urine Ketones Urine Blood Urine Nitrite Urine Bilirubin Urine Urobilinogen Ur Leukocyte Esterase Urine WBC (Auto) Urine RBC (Auto) Urine Casts (Auto) U Epithel Cells (Auto) Urine Bacteria (Auto) HOSPITAL COURSE: Date of Admission:08/14/20 Date of Discharge: 08/14/20 Pt. is a 60 y.o. F w/ PMHx of DM2 (Ddx. over 15 years ago) and Renal CA( s/p partial Nephrectomy 07/23/20). Pt. was observed in the hospital off PO hypoglycmeis and covered with ISS. Pt. only required 2 units of ISS throughout hospital course. based off of history it was determined that Pt. had decreased reserve renal function after procedure and therefore was not able to clear Glimepiride therefore causing hypoglycemia. The possibility of an ectopic ILGF2 producing tumor is present but this is less likely as Pt. did not have repeat symptoms in the hospital. Pt. was advised to follow up with her oncologist or PET scan as has been previosuly scheduled and with her PCP. Discussed with Pt. to stop all diabetic medications and continue to monitor her blood glucose. Pt. instructed to resume Metformin if Pt. is getting results of 180 or higher. Discussed with Pt. to call PCP immediately if resuming Metformin and to follow up within a week for further medication adjustments. Pt. given referral for Horse Show Manager upon discharge. Hospital course discussed and agreed upon with Pt. and medical staff. Minutes to complete discharge: 30 Discharge Summary Problems reviewed: Yes Reason For Visit: HYPOGLYCEMIA Current Active Problems Hypoglycemia (Acute) Diabetes (Chronic) Condition: Improved - Instructions Diet, Activity, Other Instructions: You were admitted for several episodes of hypoglycemia. We observed you in the hospital without any further episodes of hypoglycemia. We believe this is due to your dose of diabetes medications. we tested your A1c and it was 4.4%. We noticed that your right ankle was swollen, we imaged your leg an did not find any evidence of clots. Please continue to elevate your leg when you are at rest As we discussed please follow up with your Oncologist to have a PET scan. Please STOP taking both Glimepride and Metformin Please continue to monitor your glucose levels( befoer each meal and at bed time ) , if you notice that your glucose levels are starting to go higher than 180 persistently for > 3 days , please restart your Metformin 500 mg once daily and call your PCP. You may need to be restarted on Metformin in the future. Please continue your home medications as prescribed. Please follow up with your PCP within 2-3 days . Please follow up with your Horse Show Manager within 1 week, we have provided Dr. Pittman if you do not have one. Please return to the ED if you are having more episodes of low blood sugar, chest pain, seizures or any other concerning symptoms. take log of sugar to your doctor when you see him/her ( your primary care clinic ) and also , to the plastic fixture builder . if you experience any symptoms of hypoglycemia , drink orange juice and eat crackles and report to or call 911 Referrals: Britton Pittman MD [Staff Physician] - 1 Week Disposition: HOME This patient is new to me today: Yes Date on this admission: 08/14/20 Emergency Visit: Yes ED Registration Date: 08/14/20 Care time: The patient presented to the Emergency Department on the above date and was hospitalized for further evaluation of their emergent condition. Critical Care patient: No - Discharge Referral Referred to [facility] No ATTENDING PHYSICIAN STATEMENT I saw and evaluated the patient. I reviewed the resident's note and discussed the case with the resident. I agree with the resident's findings and plan as documented. SUBJECTIVE: OBJECTIVE: ASSESSMENT AND PLAN:
[2020-08-14] MEDS ORDERED: MAGNESIUM OXIDE 400 MG TABLET (FP) PO ONE (16:30)
--- NOTE | 2020-08-15 21:34 | EKG ---
Test Reason : Blood Pressure : / mmHG Vent. Rate : 099 BPM Atrial Rate : 099 BPM P-R Int : 140 ms QRS Dur : 072 ms QT Int : 360 ms P-R-T Axes : 037 002 025 degrees QTc Int : 462 ms NORMAL SINUS RHYTHM NORMAL ECG WHEN COMPARED WITH ECG OF 04-MAY-2020 23:55, NO SIGNIFICANT CHANGE WAS FOUND Confirmed by SRINIVAS JAIMES MD ([id number]) on 08/15/2020 9:34:29 PM Referred By: Confirmed By:SRINIVAS JAIMES MD
== END 2020-08-14 17:26 | disposition home or self-care (01) | DRG 638 ==
LOC: JER 23:18 → JERBED 08-14 01:36 → J7W 08-14 03:11
PROVIDERS: ADMIT Internal Medicine; ATTEND Internal Medicine
DX: E11.649 Type 2 diabetes mellitus with hypoglycemia without coma (principal); C64.9 Malignant neoplasm of unspecified kidney, except renal pelvis; E11.40 Type 2 diabetes mellitus with diabetic neuropathy, unspecified; Z79.84 Long term (current) use of oral hypoglycemic drugs; R82.81 Pyuria
CPT/HCPCS: 36415; 80048; 80053; 81003; 82962; 83036; 83735; 84100; 85025; 85027; 85610; 85730; 87086; 93005; 93010; 93971-TC; 99285-25; U0003

== ENCOUNTER 2022-11-23 11:15 | Emergency (ER) | payer OTHER ==
[2022-11-23 11:31] VITALS: PULSE 89; RESP 18; TEMP 98.6; BMI 27.3
[2022-11-23 14:20] VITALS: BP 150/78
== END 2022-11-23 15:11 | disposition home or self-care (01) ==
LOC: JER 11:15
DX: S09.90XA Unspecified injury of head, initial encounter (principal); W01.0XXA Fall on same level from slipping, tripping and stumbling without subsequent striking against object, initial encounter
CPT/HCPCS: 70450-TC; 72125-TC; 99284-25

== ENCOUNTER 2024-09-21 09:38 | Emergency (ER) | payer OTHER ==
[2024-09-21 09:43] VITALS: BP 139/78; PULSE 65; RESP 18; TEMP 97.8; BMI 29.0
[2024-09-21 10:55] LABS: BASO % 0.5 % (0-2.0); EOS % 2.8 % (0-4.5); HEMATOCRIT 34.3 % (32.4-45.2); HEMOGLOBIN 11.3 GM/dL (10.7-15.3); LYMPH % 19.6 % (8-40); MCH 27.1 pg (25.7-33.7); MEAN CELL VOLUME 82.1 fl (80-96); MEAN PLT VOLUME 7.8 fl (7.5-11.1); MONO % 5.2 % (3.8-10.2); NEUT % 71.9 % (42.8-82.8); PLATELET COUNT 295 10^3/uL (134-434); RBC 4.18 M/mm3 (3.60-5.2); RDW 14.7 % (11.6-15.6); WHITE BLOOD COUNT 7.6 K/mm3 (4.0-10.0)
[2024-09-21 11:41] LABS: POTASSIUM 5.4 mmol/L (3.5-5.1)
[2024-09-21 11:43] LABS: CALCIUM 8.9 mg/dL (8.5-10.1)
[2024-09-21 11:44] LABS: ALBUMIN 3.4 g/dl (3.4-5.0); BLOOD UREA NITROGEN 28.4 mg/dL (7-18)
[2024-09-21 11:47] LABS: CREATININE 2.4 mg/dL (0.55-1.3)
[2024-09-21 11:48] LABS: BILIRUBIN,TOTAL 0.3 mg/dL (0.2-1)
== END 2024-09-21 12:08 | disposition home or self-care (01) ==
LOC: JER 09:38
DX: U07.1 COVID-19 (principal); R05.9 Cough, unspecified; R09.82 Postnasal drip; R09.81 Nasal congestion
CPT/HCPCS: 0241U-QW; 36415; 71046-TC-FY; 80053; 85025; 93005; 93010; 99285-25